=== PATIENT | female | born 1990 | race African-American/Black ===

== ENCOUNTER 2020-06-20 12:28 | Emergency (ER) | payer SELFPAY ==
[2020-06-20] MEDS ORDERED: KETOROLAC 30 MG/ML INJ ONE (13:59)
[2020-06-20 14:12] LABS: Urine Bacteria 20-50 /HPF (<20); Urine Culture Reflex Order NOT NEEDED; Urine Mucus LIGHT /HPF (NONE SEEN); Urine RBC <5 /HPF (NONE SEEN)
[2020-06-20 14:21] LABS: Urine Blood NEGATIVE (NEG); Urine Glucose NEGATIVE (NEG); Urine Protein 1+ (NEG); Urine Specific Gravity 1.025 (1.005-1.030)
--- NOTE | 2020-06-20 14:32 | EDPHYS ---
Physician Documentation [facility] Name: Minerva Fry Age: 29 yrs Sex: Female : 1990 Arrival Date: 06/20/2020 Time: 12:29 Bed 20 Private MD: ED Physician Marbella Green HPI: 06/20 14:13 This 29 yrs old Black Female presents to ER via Ambulatory with complaints of Abdominal snw Pain. 14:13 The patient presents with abdominal pain right lower quadrant. Onset: The snw symptoms/episode began/occurred suddenly, 2 day(s) ago, and became persistent. The symptoms do not radiate. Associated signs and symptoms: none. The symptoms are described as constant, waxing/waning. Modifying factors: The symptoms are alleviated by nothing, the symptoms are aggravated by movement, pressure, walking. Severity of pain: At its worst the pain was moderate 7/10 all the time, worse at times. 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 - Social history:: Smoking status: Patient denies any tobacco usage or history of. ROS: 13:58 Constitutional: Negative for fever, chills, and weight loss, Eyes: Negative for injury, snw pain, redness, and discharge, ENT: Negative for injury, pain, and discharge, Neck: Negative for injury, pain, and swelling, Cardiovascular: Negative for chest pain, palpitations, and edema, Respiratory: Negative for shortness of breath, cough, wheezing, and pleuritic chest pain, Abdomen/GI: Positive for abdominal pain, no nausea, vomiting, diarrhea, or constipation, Back: Negative for injury and pain, : Negative for injury, bleeding, discharge, and swelling, Skin: Negative for injury, rash, and discoloration, Neuro: Negative for headache, weakness, numbness, tingling, and seizure. Exam: 13:57 Constitutional: This is a well developed, well nourished patient who is awake, alert, snw and in no acute distress. Head/Face: Normocephalic, atraumatic. Eyes: Pupils equal round and reactive to light, extra-ocular motions intact. Lids and lashes normal. Conjunctiva and sclera are non-icteric and not injected. Cornea within normal limits. Periorbital areas with no swelling, redness, or edema. ENT: Nares patent. No nasal discharge, no septal abnormalities noted. Tympanic membranes are normal and external auditory canals are clear. Oropharynx with no redness, swelling, or masses, exudates, or evidence of obstruction, uvula midline. Mucous membranes moist. Neck: Trachea midline, no thyromegaly or masses palpated, and no cervical lymphadenopathy. Supple, full range of motion without nuchal rigidity, or vertebral point tenderness. No Meningismus. Chest/axilla: Normal chest wall appearance and motion. Nontender with no deformity. No lesions are appreciated. Cardiovascular: Regular rate and rhythm with a normal S1 and S2. No gallops, murmurs, or rubs. Normal PMI, no JVD. No pulse deficits. Respiratory: Lungs have equal breath sounds bilaterally, clear to auscultation and percussion. No rales, rhonchi or wheezes noted. No increased work of breathing, no retractions or nasal flaring. Back: No spinal tenderness. No costovertebral tenderness. Full range of motion. Skin: Warm, dry with normal turgor. Normal color with no rashes, no lesions, and no evidence of cellulitis. MS/ Extremity: Pulses equal, no cyanosis. Neurovascular intact. Full, normal range of motion. Neuro: Awake and alert, GCS 15, oriented to person, place, time, and situation. Cranial nerves II-XII grossly intact. Motor strength 5/5 in all extremities. Sensory grossly intact. Cerebellar exam normal. Normal gait. Psych: Awake, alert, with orientation to person, place and time. Behavior, mood, and affect are within normal limits. 13:57 Abdomen/GI: Inspection: abdomen appears normal, Bowel sounds: diminished, in all quadrants, Palpation: mild abdominal tenderness, in the left lower quadrant, moderate abdominal tenderness, in all quadrants, in the right lower quadrant. Vital Signs: 12:55 BP 120 / 71; Pulse 66; Resp 16 S; Temp 98.0(O); Pulse Ox 100% on R/A; Weight 62.6 kg aa5 (R); Height 5 ft. 6 in. (167.64 cm) (R); Pain 7/10; 13:45 BP 108 / 76; Pulse 67; Resp 16; Pulse Ox 100% ; rb1 14:30 BP 113 / 79; Pulse 67; Resp 17; Pulse Ox 100% ; rb1 12:55 Body Mass Index 22.27 (62.60 kg, 167.64 cm) aa5 MDM: 13:09 Patient medically screened. snw 14:33 Data reviewed: vital signs, nurses notes. Data interpreted: Pulse oximetry: on room air snw is 100 %. Interpretation: normal. Counseling: I had a detailed discussion with the patient and/or guardian regarding: the historical points, exam findings, and any diagnostic results supporting the discharge/admit diagnosis, lab results, radiology results, the need for outpatient follow up, to return to the emergency department if symptoms worsen or persist or if there are any questions or concerns that arise at home. Special discussion: Based on the patient's Hx, exam, and Dx evaluation, there is no indication for emergent surgery or inpatient Tx. It is understood by the patient/guardian that if the Sx's persist or worsen they need to return immediately for re-evaluation. Based on the history and exam findings, there is no indication for further emergent testing or inpatient evaluation. I discussed with the patient/guardian the need to see the OB Gyne specialist for further evaluation of the symptoms. I discussed with the patient/guardian the need to see the primary care provider for further evaluation of the symptoms. 06/20 13:06 Order name: Urine Microscopic Only; Complete Time: 14:18 snw 06/20 13:54 Order name: Urine Dipstick--Ancillary (enter results); Complete Time: 14:25 eb 06/20 13:40 Order name: US Transvaginal Study (Probe); Complete Time: 14:58 snw 06/20 13:54 Order name: Urine --Ancillary (enter results); Complete Time: 14:25 eb 06/20 13:06 Order name: Urine Test (obtain specimen); Complete Time: 13:52 snw 06/20 13:06 Order name: Urine Dipstick-Ancillary (obtain specimen); Complete Time: 13:52 snw Administered Medications: 13:53 Drug: TORadol 60 mg {Note: UPT negative. .} Route: IM; Site: right gluteus; aa5 14:09 Follow up: Response: No adverse reaction rb1 14:35 Drug: Stewart 5 mg-325 mg 1 tabs Route: PO; rb1 15:00 Follow up: Response: No adverse reaction rb1 Disposition: 16:23 Co-signature as Attending Physician, Marbella Green MD. ma2 Disposition: 06/20/20 14:31 Discharged to Home. Impression: Other ovarian cysts. - Condition is Stable. - Discharge Instructions: Abdominal Pain, Adult, Ovarian Cyst. - Prescriptions for Diclofenac Sodium 75 mg Oral Tablet Sustained Release - take 1 tablet by ORAL route 2 times per day; 30 tablet. promethazine 25 mg Oral Tablet - take 1 tablet by ORAL route every 6 hours As needed; 20 tablet. - Medication Reconciliation Form, Thank You Letter, Antibiotic Education, Prescription Opioid Use form. - Follow up: Emergency Department; When: As needed; Reason: Worsening of condition. Follow up: Private Physician; When: 1 week; Reason: Recheck today's complaints, Continuance of care, Re-evaluation by your physician. Signatures: Dispatcher [employer] EDMS Jossy Berman, SHELLY-C KNIFER UP-Csnw Terri Guerrero RN RN aa5 Karla Medina RN RN rb1 Marbella Green MD MD ma2 Corrections: (The following items were deleted from the chart) 14:13 13:58 Constitutional: Negative for fever, chills, and weight loss, Eyes: Negative for snw injury, pain, redness, and discharge, ENT: Negative for injury, pain, and discharge, Neck: Negative for injury, pain, and swelling, Cardiovascular: Negative for chest pain, palpitations, and edema, Respiratory: Negative for shortness of breath, cough, wheezing, and pleuritic chest pain, Abdomen/GI: Negative for abdominal pain, nausea, vomiting, diarrhea, and constipation, Back: Negative for injury and pain, : Negative for injury, bleeding, discharge, and swelling, Skin: Negative for injury, rash, and discoloration, Neuro: Negative for headache, weakness, numbness, tingling, and seizure, snw 15:17 14:31 06/20/2020 14:31 Discharged to Home. Impression: Other ovarian cysts. Condition rb1 is Stable. Forms are Medication Reconciliation Form, Thank You Letter, Antibiotic Education, Prescription Opioid Use. Follow up: Emergency Department; When: As needed; Reason: Worsening of condition. Follow up: Private Physician; When: 1 week; Reason: Recheck today's complaints, Continuance of care, Re-evaluation by your physician. snw
--- NOTE | 2020-06-20 14:32 | ER ---
Nurse's Notes [facility] Name: Minerva Fry Age: 29 yrs Sex: Female : 1990 Arrival Date: 06/20/2020 Time: 12:29 Bed 20 Private MD: Diagnosis: Other ovarian cysts Presentation: 06/20 12:52 Chief complaint: Patient states: RLQ pain that began 4 days ago and is worse with aa5 movement. Pt denies nausea/vomiting/diarrhea. Pt denies urinary symptoms. 12:52 Coronavirus screen: Client denies travel out of the [place] in the last 14 days. At this aa5 time, the client does not indicate any symptoms associated with coronavirus-19. Ebola Screen: Patient negative for fever greater than or equal to 101.5 degrees Fahrenheit, and additional compatible Ebola Virus Disease symptoms. Initial Sepsis Screen: Does the patient meet any 2 criteria? No. Patient's initial sepsis screen is negative. Does the patient have a suspected source of infection? No. Patient's initial sepsis screen is negative. Risk Assessment: Do you want to hurt yourself or someone else? Patient reports no desire to harm self or others. Onset of symptoms was 2019. 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 - Social history:: Smoking status: Patient denies any tobacco usage or history of. Screenin:57 Abuse screen: Denies threats or abuse. Nutritional screening: No deficits noted. rb1 Tuberculosis screening: No symptoms or risk factors identified. Fall Risk None identified. Assessment: 12:57 General: Appears in no apparent distress. Behavior is calm, cooperative. Pain: rb1 Complains of pain in right lower quadrant Pain began x 4 days. Neuro: Level of Consciousness is awake, alert, obeys commands, Oriented to person, place, time, situation. Cardiovascular: Capillary refill < 3 seconds. Respiratory: Airway is patent Respiratory effort is even, unlabored, Respiratory pattern is regular, symmetrical. GI: Patient currently denies diarrhea, nausea, vomiting. : No signs and/or symptoms were reported regarding the genitourinary system. Derm: Skin is dry, Skin is normal, Skin temperature is warm. 13:54 Reassessment: Awaiting US. Neuro: Level of Consciousness is awake, alert, obeys aa5 commands, Oriented to person, place, time, situation. Respiratory: Airway is patent Respiratory effort is even, unlabored, Respiratory pattern is regular, symmetrical. Derm: Skin is dry, Skin is normal, Skin temperature is warm. 14:35 Reassessment: Patient appears in no apparent distress at this time. Patient and/or rb1 family updated on plan of care and expected duration. Pain level reassessed. Patient is alert, oriented x 3, equal unlabored respirations, skin warm/dry/pink. pain 10/10. 15:15 Reassessment: Patient appears in no apparent distress at this time. No changes from rb1 previously documented assessment. Vital Signs: 12:55 BP 120 / 71; Pulse 66; Resp 16 S; Temp 98.0(O); Pulse Ox 100% on R/A; Weight 62.6 kg aa5 (R); Height 5 ft. 6 in. (167.64 cm) (R); Pain 7/10; 13:45 BP 108 / 76; Pulse 67; Resp 16; Pulse Ox 100% ; rb1 14:30 BP 113 / 79; Pulse 67; Resp 17; Pulse Ox 100% ; rb1 12:55 Body Mass Index 22.27 (62.60 kg, 167.64 cm) aa5 ED Course: 12:29 Patient arrived in ED. ag5 12:52 Arm band placed on. aa5 12:57 Patient has correct armband on for positive identification. Bed in low position. Call rb1 light in reach. Side rails up X 1. Pulse ox on. NIBP on. Warm blanket given. 13:04 Triage completed. aa5 13:05 Jossy Berman FNP-C is PHCP. snw 13:05 Marbella Green MD is Attending Physician. snw 13:06 Karla Medina, ORIANA is Primary Nurse. rb1 14:23 Ultrasound completed. Patient tolerated well. Notified CATTLE STICKER/PA jossy. sg3 14:28 US Transvaginal Study (Probe) In Process Unspecified. EDMS 15:16 No provider procedures requiring assistance completed. Patient did not have IV access rb1 during this emergency room visit. Administered Medications: 13:53 Drug: TORadol 60 mg {Note: UPT negative. .} Route: IM; Site: right gluteus; aa5 14:09 Follow up: Response: No adverse reaction rb1 14:35 Drug: Onsted 5 mg-325 mg 1 tabs Route: PO; rb1 15:00 Follow up: Response: No adverse reaction rb1 Outcome: 14:31 Discharge ordered by snjai 15:10 Discharged to home ambulatory. rb1 15:10 Condition: stable 15:10 Discharge instructions given to patient, Instructed on discharge instructions, follow rb1 up and referral plans. medication usage, Demonstrated understanding of instructions, follow-up care, medications, Prescriptions given X 2. 15:10 Patient left the ED. rb1 Signatures: Dispatcher [employer] EDMS Jossy Berman, SHELLY-C PRODUCTION ILLUSTRATOR-Terri Westfall RN RN aa5 Karla Medina RN RN rb1 Melissa Bustamante sg3 Juan Alberto Maravilla ag5 Corrections: (The following items were deleted from the chart) 13:10 12:52 Chief complaint: Patient states: RLQ pain that began 4 days ago and is worse with aa5 movement. Pt denies nausea/vomiting/diarrhea. aa5 13:52 13:53 TORadol 60 mg IM in right gluteus aa5 aa5 15:17 15:10 Discharge instructions given to patient, Instructed on discharge instructions, rb1 follow up and referral plans. medication usage, Demonstrated understanding of instructions, follow-up care, medications, Prescriptions given X 1, rb1 15:18 15:17 Patient left the ED. rb1 rb1
[2020-06-20] MEDS ORDERED: HYDROCODONE/APAP 5/325 MG TAB ONE (14:45)
--- NOTE | 2020-06-20 14:50 | RAD REPORT ---
EXAM DESCRIPTION: US - Transvaginal Study Probe - 06/20/2020 2:27 pm CLINICAL HISTORY: Pelvic pain COMPARISON: none FINDINGS: The uterus is retroverted measuring 8 x 5 x 5 millimeters. An IUD is present within the en dometrium. It lies within the uterine body and fundus. 4.4 centimeter complex cystic mass right ovary. Blood flow to the right ovary is present. Left ovary is normal size and echotexture. The right and left adnexum unremarkable. Small amount of free fluid IMPRESSION: An IUD is present within the endometrium. 4.4 centimeter complex cystic mass right ovary likely benign. Follow up ultrasound in a couple months is recommended for re-evaluation.
[2020-06-21 12:31] VITALS: TEMP 98; O2SAT 100
[2020-06-21 12:33] VITALS: BP 113/79
== END 2020-06-20 15:17 | disposition home or self-care (01) ==
LOC: ER 12:28
DX: N83.299 Other ovarian cyst, unspecified side (principal)
CPT/HCPCS: 76830; 81003; 81015; 81025; 96372; 99284

== ENCOUNTER 2021-04-27 07:37 | Emergency (ER) | payer SELFPAY ==
--- OUTSIDE RECORDS SUMMARY | 2021-04-27 07:40 | XMS REPORT | Continuity of Care Document ---
:1990 Author Organization [facility] t Address [address] [place] [address] Care Team Providers Name Role Phone Faustina Carlin Attending Clinician Problems This patient has no known problems. Allergies, Adverse Reactions, Alerts This patient has no known allergies or adverse reactions. Medications This patient has no known medications. Procedures This patient has no known procedures. Encounters Start End Encounter Admission Attending Care Care Encounter Source Date/Time Date/Time Type Type Clinicians Facility Department ID 2020-11-11 2020-11-11 Office BLAKE Pineda [id number] 13:07:06 13:58:50 Visit Darwin Weems CHILD LIFE SPECIALIST [id number] [facility] [id number] MATERNAL [id number] & CHILD [address] [place] [address] Results This patient has no known results.
[2021-04-27 08:52] LABS: Urine Blood Negative (Negative); Urine Glucose Negative (Negative); Urine Protein Negative (Negative); Urine Specific Gravity 1.025 (1.005-1.030)
[2021-04-27 08:57] LABS: Absolute Lymphocytes (CBC) 0.7 K/uL (0.7-4.9); Basophils % 0.5 % (0-1.3); Hematocrit 37.7 % (36.0-45.0); Lymphocytes % 19.4 % (15.3-44.8); MPV 9.7 fL (7.6-11.3); RBC Red Blood Cell Count 4.74 M/uL (3.86-4.86)
[2021-04-27 08:59] LABS: Urine Specific Gravity/Preg 1.025 (1.005-1.030)
[2021-04-27] MEDS ORDERED: MORPHINE 4 MG/ML SYR ONE (09:12)
[2021-04-27] MEDS ORDERED: NA CHLORIDE 0.9% 500 ML ONE (09:12)
[2021-04-27] MEDS ORDERED: ONDANSETRON 4 MG/2 ML VIAL ONE (09:12)
[2021-04-27 09:18] LABS: ALT/SGPT 24 U/L (12-78); AST/SGOT 12 U/L (15-37); Albumin 3.8 g/dL (3.4-5.0); Alkaline Phosphatase 51 U/L (45-117); BUN Blood Urea Nitrogen 12 mg/dL (7-18); Bicarbonate 27 mmol/L (21-32); Bilirubin Direct 0.1 mg/dL (0-0.2); Bilirubin Total 0.3 mg/dL (0.2-1.0); Glucose Level 91 mg/dL (74-106); Lipase 37 U/L (73-393); Potassium 4.1 mmol/L (3.5-5.1); Protein, Total 7.2 g/dL (6.4-8.2); Sodium Level 140 mmol/L (136-145)
--- NOTE | 2021-04-27 10:44 | RAD REPORT ---
EXAM DESCRIPTION: CT - Abdomen Pelvis W Contrast - 04/27/2021 9:35 am CLINICAL HISTORY: ABD PAIN COMPARISON: Head C Spine Cap Wo Con dated 04/26/2021No comparisons TECHNIQUE: Biphasic, helical CT imaging of the abdomen and pelvis was performed following 100 ml non -ionic IV contrast. No oral contrast administered. All CT scans are performed using dose optimization technique as appropriate and may include automated exposure control or mA/KV adjustment according to patient size. FINDINGS: No suspicious findings in the lung bases. The liver, spleen, and pancreas show no suspicious findings. Gallbladder and biliary tree are also wi thout suspicious finding. Symmetric renal function is seen with no hydronephrosis or suspicious renal mass. No pyelonephritis o r acute parenchymal process. No bladder abnormalities. No adrenal abnormalities. No stomach or small bowel abnormality seen. There is no appendicitis finding. Circumferential wall th ickening involves the colon from cecum through splenic flexure. Descending colon is spared any signif icant wall thickening or edema. There is less prominent wall thickening and edema of the sigmoid and rectum portions of the colon. A discrete mass is not identified. No free air or pneumatosis. Small amount of free fluid is present in the cul de sac. IUD is in place within the uterus which is tilted posteriorly to the left. Ovaries appear to be normal size for age are somewhat isodense to the adjacent structures. Small cysts or follicles are present. A primary ova shakira process is not suspected. No fallopian tube dilatation. No hernia, mass or bulky lymphadenopathy. No suspicious bony findings. IMPRESSION: Pancolitis pattern is present sparing the descending portion of the colon. No mass lesio n identified. No abscess, free air or surgically emergent finding. Free fluid in the cul de sac may be reactive from the colitis, for physiologic or a combination. No acute or WALLET ASSEMBLER process suspected.
--- NOTE | 2021-04-27 11:01 | ER ---
Nurse's Notes [facility] Name: Minerva Fry Age: 30 yrs Sex: Female : 1990 Arrival Date: 04/27/2021 Time: 07:57 Bed 18 Private MD: Diagnosis: Abdominal pain, Generalized;Noninfective gastroenteritis and colitis, unspecified Presentation: 04/27 08:04 Chief complaint: Patient states: having bad stomach pains, intermittent X 3 days, pain iw is in lower abd radiating to back, +nausea, no vomiting or diarrhea. Coronavirus screen: At this time, the client does not indicate any symptoms associated with coronavirus-19. Ebola Screen: Patient negative for fever greater than or equal to 101.5 degrees Fahrenheit, and additional compatible Ebola Virus Disease symptoms Patient denies exposure to infectious person. Patient denies travel to an Ebola-affected area in the 21 days before illness onset. No symptoms or risks identified at this time. Initial Sepsis Screen: Does the patient meet any 2 criteria? No. Patient's initial sepsis screen is negative. Does the patient have a suspected source of infection? No. Patient's initial sepsis screen is negative. Risk Assessment: Do you want to hurt yourself or someone else? Patient reports no desire to harm self or others. Onset of symptoms was April 24, 2021. 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 - Social history:: Smoking status: Patient denies any tobacco usage or history of. Screenin:05 Abuse screen: Denies threats or abuse. Denies injuries from another. Nutritional kg screening: No deficits noted. Tuberculosis screening: No symptoms or risk factors identified. Fall Risk None identified. No fall in past 12 months (0 pts). No secondary diagnosis (0 pts). IV access (20 points). Ambulatory Aid- None/Bed Rest/Nurse Assist (0 pts). Gait- Normal/Bed Rest/Wheelchair (0 pts) Mental Status- Oriented to own ability (0 pts). Total Perdomo Fall Scale indicates No Risk (0-24 pts). Assessment: 09:03 General: Appears in no apparent distress. Behavior is calm, cooperative, appropriate kg for age, quiet. Pain: Complains of pain in right upper quadrant and right lower quadrant Pain currently is 0 out of 10 on a pain scale. at worst was 9 out of 10 on a pain scale. level that patient reports is acceptable is 3 out of 10 on a pain scale. Quality of pain is described as aching, crampy, Is intermittent. Neuro: No deficits noted. Cardiovascular: No deficits noted. Respiratory: No deficits noted. GI: Abdomen is flat, Bowel sounds present X 4 quads. Abd is soft X 4 quads Abdomen is tender to palpation in right upper quadrant and right lower quadrant. GI: Reports nausea. : No deficits noted. Urine is cloudy. EENT: No deficits noted. Derm: No deficits noted. Musculoskeletal: No deficits noted. 09:38 Reassessment: Pt left for CT. kg 09:38 Reassessment: Pt back from CT. kg Vital Signs: 08:04 BP 123 / 90; Pulse 65; Resp 16; Temp 98.1; Pulse Ox 99% on R/A; Weight 72.57 kg; Height iw 5 ft. 6 in. (167.64 cm); Pain 10/10; 11:19 BP 111 / 66; Pulse 65; Resp 16; Pulse Ox 98% on R/A; kg 08:04 Body Mass Index 25.82 (72.57 kg, 167.64 cm) iw ED Course: 07:57 Patient arrived in ED. as 08:06 Triage completed. iw 08:06 Eleazar Sheridan MD is Attending Physician. kdr 08:06 Arm band placed on. iw 08:40 Nori Pineda, ORIANA is Primary Nurse. kg 08:45 Inserted saline lock: 20 gauge in right antecubital area, using aseptic technique. kg 09:02 Basic Metabolic Panel Sent. kg 09:06 Patient has correct armband on for positive identification. Bed in low position. Call kg light in reach. Side rails up X 1. 09:35 CT Abd/Pelvis - IV Contrast Only In Process Unspecified. EDMS 11:19 No provider procedures requiring assistance completed. IV discontinued, intact, kg bleeding controlled, No redness/swelling at site. Pressure dressing applied. Administered Medications: 08:55 Drug: NS 0.9% 500 ml Route: IV; Rate: bolus; Site: right antecubital; kg 09:45 Follow up: Response: No adverse reaction; Marked relief of symptoms; IV Status: kg Completed infusion; IV Intake: 1000ml 08:55 Drug: morphine 4 mg Route: IVP; Site: right antecubital; kg 09:45 Follow up: Response: No adverse reaction; Marked relief of symptoms; Pain is decreased kg 08:55 Drug: Zofran (Ondansetron) 4 mg Route: IVP; Site: right antecubital; kg 09:45 Follow up: Response: No adverse reaction; Marked relief of symptoms; Nausea is decreasedkg 11:05 Drug: Cipro (ciprofloxacin) 500 mg Route: PO; kg 11:19 Follow up: Response: No adverse reaction kg 11:05 Drug: Flagyl (metroNIDAZOLE) 500 mg Route: PO; kg 11:19 Follow up: Response: No adverse reaction kg Intake: 09:45 IV: 1000ml; Total: 1000ml. kg Outcome: 11:00 Discharge ordered by . kdr 11:20 Discharged to home ambulatory, with friend. kg 11:20 Condition: improved 11:20 Discharge instructions given to patient, Instructed on discharge instructions, follow up and referral plans. Demonstrated understanding of instructions, follow-up care, medications, Prescriptions given X 4. 11:20 Patient left the ED. kg Signatures: Dispatcher [employer] EDEleazar Ag MD MD kdr Martinez, Amelia as Williams, Irene, RN RN iw Graham, Kristen, RN RN kg
--- NOTE | 2021-04-27 11:01 | EDPHYS ---
Physician Documentation [facility] Name: Minerva Fry Age: 30 yrs Sex: Female : 1990 Arrival Date: 04/27/2021 Time: 07:57 Bed 18 Private MD: ED Physician Eleazar Sheridan HPI: 04/27 08:50 This 30 yrs old Black Female presents to ER via Ambulatory with complaints of Abdominal kdr Pain. 08:51 The patient presents with abdominal pain in the lower abdomen. Onset: The kdr symptoms/episode began/occurred gradually, 3 day(s) ago. The symptoms radiate to back. Associated signs and symptoms: Pertinent positives: nausea. The symptoms are described as achy, intermittent, vague, waxing/waning. Modifying factors: The symptoms are alleviated by nothing, the symptoms are aggravated by nothing. Severity of pain: At its worst the pain was moderate severe just prior to arrival, in the emergency department the pain has improved. The patient has not experienced similar symptoms in the past. The patient has not recently seen a physician. 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 - Social history:: Smoking status: Patient denies any tobacco usage or history of. ROS: 08:51 Constitutional: Negative for fever, chills, and weight loss, Eyes: Negative for injury, kdr pain, redness, and discharge, Neck: Negative for injury, pain, and swelling, Cardiovascular: Negative for chest pain, palpitations, and edema, Respiratory: Negative for shortness of breath, cough, wheezing, and pleuritic chest pain, Back: Negative for injury and pain, : Negative for injury, bleeding, discharge, and swelling, MS/Extremity: Negative for injury and deformity, Skin: Negative for injury, rash, and discoloration, Neuro: Negative for headache, weakness, numbness, tingling, and seizure activity. Psych: Negative for depression, anxiety, suicide ideation, homicidal ideation, and hallucinations, Allergy/Immunology: Negative for hives, rash, and allergies, Endocrine: Negative for neck swelling, polydipsia, polyuria, polyphagia, and marked weight changes, Hematologic/Lymphatic: Negative for swollen nodes, abnormal bleeding, and unusual bruising. 08:51 Abdomen/GI: Positive for abdominal pain, nausea, of the suprapubic area, right lower quadrant and left lower quadrant, Negative for black/tarry stool, rectal pain, rectal bleeding. Exam: 08:51 Constitutional: This is a well developed, well nourished patient who is awake, alert, kdr and in no acute distress. Head/Face: Normocephalic, atraumatic. Eyes: Pupils equal round and reactive to light, extra-ocular motions intact. Lids and lashes normal. Conjunctiva and sclera are non-icteric and not injected. Cornea within normal limits. Periorbital areas with no swelling, redness, or edema. Neck: Trachea midline, no thyromegaly or masses palpated, and no cervical lymphadenopathy. Supple, full range of motion without nuchal rigidity, or vertebral point tenderness. No Meningismus. Chest/axilla: Normal chest wall appearance and motion. Nontender with no deformity. No lesions are appreciated. Cardiovascular: Regular rate and rhythm with a normal S1 and S2. No gallops, murmurs, or rubs. Normal PMI, no JVD. No pulse deficits. Respiratory: Lungs have equal breath sounds bilaterally, clear to auscultation and percussion. No rales, rhonchi or wheezes noted. No increased work of breathing, no retractions or nasal flaring. Back: No spinal tenderness. No costovertebral tenderness. Full range of motion. Skin: Warm, dry with normal turgor. Normal color with no rashes, no lesions, and no evidence of cellulitis. MS/ Extremity: Pulses equal, no cyanosis. Neurovascular intact. Full, normal range of motion. Neuro: Awake and alert, GCS 15, oriented to person, place, time, and situation. Cranial nerves II-XII grossly intact. Motor strength 5/5 in all extremities. Sensory grossly intact. Cerebellar exam normal. Normal gait. Psych: Awake, alert, with orientation to person, place and time. Behavior, mood, and affect are within normal limits. 08:51 Abdomen/GI: Inspection: abdomen appears normal, Bowel sounds: diminished, in all quadrants, Palpation: soft, mild abdominal tenderness, mass, is not appreciated, rebound tenderness, is not appreciated. Vital Signs: 08:04 BP 123 / 90; Pulse 65; Resp 16; Temp 98.1; Pulse Ox 99% on R/A; Weight 72.57 kg; Height iw 5 ft. 6 in. (167.64 cm); Pain 10/10; 11:19 BP 111 / 66; Pulse 65; Resp 16; Pulse Ox 98% on R/A; kg 08:04 Body Mass Index 25.82 (72.57 kg, 167.64 cm) iw MDM: 08:51 Data reviewed: vital signs, nurses notes, lab test result(s), radiologic studies. kdr Counseling: I had a detailed discussion with the patient and/or guardian regarding: the historical points, exam findings, and any diagnostic results supporting the discharge/admit diagnosis, lab results, radiology results. 11:00 Patient medically screened. kdr 04/27 08:34 Order name: Basic Metabolic Panel; Complete Time: 09:52 kdr 04/27 08:34 Order name: CBC with Diff; Complete Time: 09:52 kdr 04/27 08:34 Order name: Hepatic Function; Complete Time: 09:52 kdr 04/27 08:34 Order name: Lipase; Complete Time: 09:52 kdr 04/27 08:52 Order name: Urine Dipstick-Ancillary EDPR 04/27 08:53 Order name: Urine --Ancillary (enter results); Complete Time: 09:52 mt 04/27 08:34 Order name: IV Saline Lock; Complete Time: 09:02 kdr 04/27 08:34 Order name: Labs collected and sent; Complete Time: 09:02 kdr 04/27 08:34 Order name: CT Abd/Pelvis - IV Contrast Only; Complete Time: 10:47 kdr 04/27 08:34 Order name: Urine Dipstick-Ancillary (obtain specimen); Complete Time: 09:02 kdr 04/27 08:34 Order name: Urine Test (obtain specimen); Complete Time: 09:02 kdr Administered Medications: 08:55 Drug: NS 0.9% 500 ml Route: IV; Rate: bolus; Site: right antecubital; kg 09:45 Follow up: Response: No adverse reaction; Marked relief of symptoms; IV Status: kg Completed infusion; IV Intake: 1000ml 08:55 Drug: morphine 4 mg Route: IVP; Site: right antecubital; kg 09:45 Follow up: Response: No adverse reaction; Marked relief of symptoms; Pain is decreased kg 08:55 Drug: Zofran (Ondansetron) 4 mg Route: IVP; Site: right antecubital; kg 09:45 Follow up: Response: No adverse reaction; Marked relief of symptoms; Nausea is decreasedkg 11:05 Drug: Cipro (ciprofloxacin) 500 mg Route: PO; kg 11:19 Follow up: Response: No adverse reaction kg 11:05 Drug: Flagyl (metroNIDAZOLE) 500 mg Route: PO; kg 11:19 Follow up: Response: No adverse reaction kg Disposition Summary: 04/27/21 11:00 Discharge Ordered Location: Home kdr Problem: new kdr Symptoms: have improved kdr Condition: Stable kdr Diagnosis - Abdominal pain, Generalized kdr - Noninfective gastroenteritis and colitis, unspecified kdr Followup: kdr - With: Private Physician - When: 2 - 3 days - Reason: If symptoms return, Further diagnostic work-up, Recheck today's complaints, Continuance of care, Re-evaluation by your physician Discharge Instructions: - Discharge Summary Sheet kdr - Diarrhea, Adult kdr - Abdominal Pain, Adult, [id number] kdr - Colitis kdr Forms: - Medication Reconciliation Form kdr - Thank You Letter kdr - Antibiotic Education kdr - Prescription Opioid Use kdr Prescriptions: - Cipro 500 mg Oral Tablet - take 1 tablet by ORAL route every 12 hours for 10 days; 20 tablet; Refills: 0, kdr Product Selection Permitted - Flagyl 500 mg Oral Tablet - take 1 tablet by ORAL route every 6 hours for 10 days; 40 tablet; Refills: 0, kdr Product Selection Permitted - Zofran 4 mg Oral Tablet - take 1 tablet by ORAL route every 4-6 hours As needed; 12 tablet; Refills: 0, kdr Product Selection Permitted - Tramadol 50 mg Oral Tablet - take 1 tablet by ORAL route every 8 hours as needed; 12 tablet; Refills: 0, kdr Product Selection Permitted Signatures: 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
[2021-04-27] MEDS ORDERED: CIPROFLOXACIN HCL 500 MG TAB ONE (11:27)
[2021-04-27 11:28] VITALS: TEMP 98.1
[2021-04-27] MEDS ORDERED: metroNIDAZOLE 500 MG TABLET ONE (11:28)
[2021-04-27 11:29] VITALS: BP 111/66; O2SAT 98
== END 2021-04-27 11:20 | disposition home or self-care (01) ==
LOC: ER 07:37
DX: K52.9 Noninfective gastroenteritis and colitis, unspecified (principal)
CPT/HCPCS: 36415; 74177; 80048; 80076; 81003; 81025; 83690; 85025; 96361; 96374; 96375; 99284; J2405; J7040; Q9967

== ENCOUNTER 2021-05-16 16:10 | Emergency (ER) | payer SELFPAY ==
--- OUTSIDE RECORDS SUMMARY | 2021-05-16 16:13 | XMS REPORT | Continuity of Care Document ---
:1990 Author Organization [facility] t Address [address] [place] [address] Care Team Providers Name Role Phone Faustina [...] ID 2020-11-11 2020-11-11 Office BLAKE Pineda [id number] 13:07:06 13:58:50 Visit Darwin Weems [employer] [id number] [facility] [id number] MATERNAL [phone] & CHILD [address] [place] [id number] Results This patient has no known results.
--- NOTE | 2021-05-16 18:18 | ER ---
Nurse's Notes [facility] Name: Minerva Fry Age: 30 yrs Sex: Female : 1990 Arrival Date: 05/16/2021 Time: 16:16 Bed Waiting Private MD: Diagnosis: ED Course: 05/16 16:16 Patient arrived in ED. am2 Administered Medications: No medications were administered Outcome: 18:17 Patient left the ED. iw Signatures: Melodie Chambers RN RN Teresa Banegas am2
== END 2021-05-16 18:17 | disposition left against medical advice (07) ==
LOC: ER 16:10
DX: Z02.9 Encounter for administrative examinations, unspecified (principal)

== ENCOUNTER 2021-10-04 15:03 | Emergency (ER) | payer SELFPAY ==
--- OUTSIDE RECORDS SUMMARY | 2021-10-04 15:07 | XMS REPORT | Continuity of Care Document ---
:1990 Author Organization [facility] t Address [address] [place] [address] Care Team Providers Name Role Phone Faustina Carlin Attending Clinician Faustina PINEDA Attending Clinician Unavailable Payers Payer Name Policy Type Policy Number Effective Date Expiration Date Chandler vanegas [facility] [id number] 2019 00:00:00 Problems Condition Condition Condition Status Onset Resolution Last Treating Co mments Source Name Details Category Date Date Treatment Clinician Date Encounter Encounter Disease Active Uni vers for for - ity of surveillan surve[place] ce of ce of 00 Medical other other Branch contracept contracept richar richar IUD IUD Disease Active Univers (intrauter (intrauter 11-10 it y of ine ine 00:00: [place] device) in device) in [address] Branch Depo-Prove Depo-Prove Disease Active U nivers ra ra 1-19 [place] of contracept [place] richar status richar status 00 Me dical Branch Anemia of Anemia of Disease Active 2014-10 Uni vers mother in mother in 1-17 [place]y of , , 00:[place] antepartum antepartum 00 Me dical , third , third Branch trimester trimester Multiparit Multiparit Disease Active U nivers y y 9-12 ity of 00:00: [place] 00 Medical Branch Sickle Sickle Disease Active Univers cell trait cell trait 9-12 it y of 00:00: [address] Screening Screening Disease Active Overview: [facility] examinatio examinatio 5-17 hgb it y of n for STD n for STD 00:00: [place] (sexually (sexually 00 oresis in M edical transmitte transmitte process B ranch d disease) d disease) Allergies, Adverse Reactions, Alerts Allergy Allergy Status Severity Reaction(s) Onset Inactive Treating Comm ents Source Name Type Date Date Clinician NO KNOWN Drug Active [facility] ALLERGIE Class ity of S [facility] Social History Social Habit Start Date Stop Date Quantity Comments Source Sex Assigned At [facility] y of [facility] Exposure to Not sure [facility] SARS-CoV-2 [facility] (event) [employer] Tobacco use and 2020-11-11 2020-11-11 Never used [facility] y of exposure 00:00:00 00:00:00 [facility] Alcohol intake 2020-11-11 2020-11-11 Current [facility] 00:00:00 00:00:00 non-drinker of [facility] alcohol [employer] (finding) Smoking Status Start Date Stop Date Source Never smoker [facility] Medications Ordered Filled Start Stop Current Ordering Indication Dosage Frequency Signature Comments Components Source Medication Medication Date Date Medication? Clinician (SIG) Name Name [facility] 2014-10- No 1{tbl} Take 1 Tab U nivers ENHANCE 28 12-07- by mouth ity of mg iron- 1 00:00: 00:00 every [place] mg-400 mg 00 :00 morning. Medica l Cap Branch [facility] 2014-10- No 1{tbl} Take 1 Tab U nivers ENHANCE 28 12-07-21 by mouth ity of mg iron- 1 00:00: 00:00 every [place] mg-400 mg 00 :00 morning. Medica l Cap Branch [facility] 2014-10- No 1{tbl} Take 1 Tab U nivers ENHANCE 28 12-07-21 by mouth ity of mg iron- 1 00:00: 00:00 every [place] mg-400 mg 00 :00 morning. Medica l Cap Branch docusate 2014-10- No 240mg Take 1 Cap U nivers calcium 12-04- by mouth ity of (SURFAK) 00:00: 00:00 [place] daily [place] 240 mg 00 :00 as needed Medical capsule for Branch Constipati on. ibuprofen 2014-10- No 600mg Take 1 Tab Univers (MOTRIN) 12-04 by mouth ity of 600 mg 00:00: 00:00 every 6 [place] tablet 00 :00 (six) Medical hours as Branch needed for Pain (scale 1-3) or Pain (scale 4-6). Take with food or milk. traMADOL 2014-10- No 50mg Take 1 Tab Un agustin (ULTRAM) 50 12-04 by mouth ity of mg tablet 00:00: 00:00 [place] 6 [place] 00 :[place] (six) Medical hours as Branch needed for Pain (scale 4-6) or Pain (scale 7-10). docusate 2014-10- No 240mg Take 1 Cap U nivers calcium 12-04 by mouth ity of (SURFAK) 00:00: 00:00 once daily [place] 240 mg 00 :00 as needed Medical capsule for Branch Constipati on. ibuprofen 2014-10 No 600mg Take 1 Tab Univers (MOTRIN) 12-04 by mouth ity of 600 mg 00:00: 00:00 every 6 [place] tablet 00 :00 (six) Medical hours as Branch needed for Pain (scale 1-3) or Pain (scale 4-6). Take with food or milk. traMADOL 2014-10- No 50mg Take 1 Tab Un [place] (ULTRAM) 50 12-04 by mouth ity of mg tablet 00:00: 00:00 every 6 [place] 00 :00 (six) Medical hours as Branch needed for Pain (scale 4-6) or Pain (scale 7-10). docusate 2014-10- No 240mg Take 1 Cap U nivers calcium 12-04 by mouth ity of (SURFAK) 00:00: 00:00 once daily [place] 240 mg 00 :00 as needed Medical capsule for Branch Constipati on. ibuprofen 2014-10- No 600mg Take 1 Tab Univers (MOTRIN) 12-04 by mouth ity of 600 mg 00:00: 00:00 every 6 [place] tablet 00 :00 (six) Medical hours as Branch needed for Pain (scale 1-3) or Pain (scale 4-6). Take with food or milk. traMADOL 2014-10- No 50mg Take 1 Tab Un [place] (ULTRAM) 50 12-04 by mouth ity of mg tablet 00:00: 00:00 every 6 [place] 00 :[place] (six) Medical hours as Branch needed for Pain (scale 4-6) or Pain (scale 7-10). acetaminoph 2014-10- No [id number] 1{capsu Take 1 Cap Univers en-caff-but 11-15 le} by mouth ity of albital 00:00: 00:00 every 4 [place] (ESGIC) per 00 :00 (four) Medica l capsule hours as Branch needed for Headache. acetaminoph 2014-10- No [id number] 1{capsu Take 1 Cap Univers en-caff-but 11-15 le} by mouth ity of albital 00:00: 00:00 every 4 [place] (ESGIC) per 00 :00 (four) Medica l capsule hours as Branch needed for Headache. acetaminoph 2014-10- No [id number] 1{capsu Take 1 Cap Univers en-caff-but 11-15 le} by mouth ity of albital 00:00: 00:00 every 4 [place] (ESGIC) per 00 :00 (four) Medica l capsule hours as Branch needed for Headache. Iron, Cbn & 2014-10- No [id number] 1{tbl} Take 1 Tab Univers Gluc-FA-B12 10-31 by mouth ity of -C-DSS 00:00: 00:00 daily. [place] (FERRALET 00 :00 Medical Branch DUAL-IRON DELIVERY) 90-1-12-50 mg-mg-mcg-m g per tablet Iron, Cbn & 2014-10- No [id number] 1{tbl} Take 1 Tab Univers Gluc-FA-B12 10-31 by mouth ity of -C-DSS 00:00: 00:00 daily. [place] (FERRALET 00 :00 Medical 90 Branch DUAL-IRON DELIVERY) 90-1-12-50 mg-mg-mcg-m g per tablet Iron, Cbn & 2014-10- No [id number] 1{tbl} Take 1 Tab Univers Gluc-FA-B12 -17 11-04 by mouth ity of -C-DSS 00:00: 00:00 daily. [place] (FERRALET 00 :[address] DUAL-IRON DELIVERY) 90-1-12-50 mg-mg-mcg-m g per tablet No known No Univers medications ity [facility] [place] [facility] No known No [facility] Immun[facility] Ordered Filled Immunization Date Status Comments Sourc e Immunization Name Name TDAP 2015-07-20 Completed University of 00:00:00 [facility] Influenza Virus 2015-07-20 Completed Universit y of Vaccine Quad IM 3+ 00:00:00 [facility] TDAP 2015-07-20 Completed University of 00:00:00 [facility] Influenza Virus 2015-07-20 Completed Universit y of Vaccine Quad IM 3+ 00:00:00 [facility] TDAP 2015-07-20 Completed University of 00:00:00 [facility] Influenza Virus 2015-07-20 Completed Universit y of Vaccine Quad IM 3+ 00:00:00 [facility] TDAP 2015-07-20 Completed University of 00:00:00 [facility] Influenza Virus 2015-07-20 Completed Universit y of Vaccine Quad IM 3+ 00:00:00 [facility] TDAP 2015-07-20 Completed University of 00:00:00 [facility] Influenza Virus 2015-07-20 Completed Universit y of Vaccine Quad IM 3+ 00:00:00 [facility] TDAP 2011-04-19 Completed University of 00:00:00 [facility] 2011-04-19 Completed University of 00:00:00 [facility] TDAP 2011-04-19 Completed University of 00:00:00 [facility] TDAP 2011-04-19 Completed University of 00:00:00 [facility] TDAP 2011-04-19 Completed University of 00:00:00 [facility] Vital Signs Vital Name Observation Time Observation Value Comments Source Systolic blood 2020-11-11 19:16:00 121 mm[Hg] Univer sity of pressure [facility] Diastolic blood 2020-11-11 19:16:00 73 mm[Hg] Unive rsity of pressure [facility] Heart rate 2020-11-11 19:16:00 73 /min [facility] [place] [facility] Body temperature 2020-11-11 19:16:00 36.56 Felecia Univ [facility] [place] [facility] Respiratory rate 2020-11-11 19:16:00 16 /min [facility] [place] [facility] Body height 2020-11-11 19:16:00 167.6 cm [facility] [place] [facility] Body weight 2020-11-11 19:16:00 65.772 kg [facility] [place] [facility] BMI 2020-11-11 19:16:00 23.40 kg/m2 [facility] [place] [facility] Systolic blood 2020-11-11 19:16:00 121 mm[Hg] Univer sity of pressure [place] [facility] Diastolic blood 2020-11-11 19:16:00 73 mm[Hg] Unive rsity of pressure [place] [facility] Heart rate 2020-11-11 19:16:00 73 /min [facility] [place] [facility] Body temperature 2020-11-11 19:16:00 36.56 Felecia [facility] [place] [facility] Respiratory rate 2020-11-11 19:16:00 16 /min [facility] [place] [facility] Body height 2020-11-11 19:16:00 167.6 cm [facility] [place] [facility] Body weight 2020-11-11 19:16:00 65.772 kg [facility] [place] [facility] BMI 2020-11-11 19:16:00 23.40 kg/m2 [facility] [place] [facility] Systolic blood 2020-11-04 15:19:00 117 mm[Hg] Univer sity of pressure [place] [facility] Diastolic blood 2020-11-04 15:19:00 73 mm[Hg] Unive rsity of pressure [place] [facility] Heart rate 2020-11-04 15:19:00 98 /min [facility] [place] [facility] Body temperature 2020-11-04 15:19:00 36.22 Felecia [facility] [place] [facility] Respiratory rate 2020-11-04 15:19:00 16 /min [facility] [place] [facility] Body height 2020-11-04 15:19:00 167.6 cm [facility] [place] [facility] Body weight 2020-11-04 15:19:00 66.934 kg [facility] [place] [facility] BMI 2020-11-04 15:19:00 23.82 kg/m2 Universi [facility] Procedures This patient has no known procedures. Encounters Start End Encounter Admission Attending Care Care Encounter Source Date/Time Date/Time Type Type Clinicians Facility Department ID 2020-12-22 2020-12-22 Outpatient R [facility] [id number] Univers 14:45:00 14:45:00 [id number] [facility] 2020-12-22 2020-12-22 Outpatient R [facility] [id number] Univers 14:45:00 14:45:00 [facility] 2020-12-10 2020-12-10 Outpatient R [facility] [id number] Univers 13:00:00 13:00:00 [id number] [facility] 2020-12-02 2020-12-02 Outpatient R [facility] [id number] Univers 09:00:00 09:00:00 [id number] [facility] 2020-11-11 2020-11-11 [facility] [id number] 13:07:06 13:58:50 Visit Darwin Weems [employer] [id number] [facility] [id number] MATERNAL [id number] & CHILD [address] [place] [address] 2020-11-11 2020-11-11 Office Edwin [facility] [id number] Univers 13:07:06 13:58:50 Visit Darwin Weems [employer] [id number] [facility] [id number] Danny as MATERNAL [id number] Med ical & CHILD [address] [place] [address] 2020-11-11 2020-11-11 Outpatient R EDWIN [facility] [id number] Univers 13:00:00 13:00:00 DARWIN [id number] ity o [facility] 2020-11-11 2020-11-11 Outpatient R EDWIN [facility] [id number] Univers 13:00:00 13:00:00 DARWIN ity o [facility] 2020-11-04 2020-11-04 Office BLAKE Pineda [id number] [facility] 09:13:45 09:57:42 Visit Darwin Weems [employer] [id number] luzma [facility] [id number] Danny as MATERNAL [id number] Med ical & CHILD [address] [place] [address] 2020-11-04 2020-11-04 Outpatient R EDWIN [facility] [id number] [facility] 09:30:00 09:30:00 DARWIN vincent [facility] Results This patient has no known results.
[2021-10-04] MEDS ORDERED: ACETAMINOPHEN 325 MG TABLET ONE (16:16)
[2021-10-04 17:23] LABS: SARS-COV-2 RT PCR NEGATIVE (NEGATIVE)
[2021-10-04] MEDS ORDERED: LIDOCAINE VISCOUS 2% SOLN 15 ML UDC ONE (17:33)
--- NOTE | 2021-10-04 17:34 | ER ---
Nurse's Notes [facility] Name: Minerva Fry Age: 30 yrs Sex: Female : 1990 Arrival Date: 10/04/2021 Time: 15:09 Bed 9 Private MD: Christofer Rodrigues Diagnosis: Streptococcal pharyngitis Presentation: 10/04 15:15 Chief complaint: Patient states: she had a sore throat last week, and now has a sore ap3 and stiff neck. Coronavirus screen: sore throat, Client presents with at least one sign or symptom that may indicate coronavirus-19. Standard/surgical mask placed on the client. Provider contacted for isolation considerations. Ebola Screen: No symptoms or risks identified at this time. Initial Sepsis Screen: Does the patient meet any 2 criteria? No. Patient's initial sepsis screen is negative. Does the patient have a suspected source of infection? No. Patient's initial sepsis screen is negative. Risk Assessment: Do you want to hurt yourself or someone else? Patient reports no desire to harm self or others. Onset of symptoms was September 27, 2021. 15:15 Method Of Arrival: Ambulatory ap3 15:15 Acuity: BRANDON 4 ap3 Triage Assessment: 15:16 General: Appears in no apparent distress. Behavior is calm, cooperative, appropriate ap3 for age. Pain: Complains of pain in neck. EENT: Throat is pink. Neuro: Level of Consciousness is awake, alert, obeys commands, Oriented to person, place, time, situation, Appropriate for age. Respiratory: Airway is patent Respiratory effort is even, unlabored, Respiratory pattern is regular, symmetrical. 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 - Social history:: Smoking status: Patient denies any tobacco usage or history of. Patient uses alcohol, occasionally. Screenin:17 Abuse screen: Denies threats or abuse. Nutritional screening: No deficits noted. ap3 Tuberculosis screening: No symptoms or risk factors identified. Fall Risk None identified. Assessment: 16:21 General: Appears in no apparent distress. comfortable, well developed, Behavior is ww calm, cooperative, appropriate for age. Pain: Complains of pain in uvula, left aspect of posterior pharynx and right aspect of posterior pharynx. Neuro: Level of Consciousness is awake, alert, obeys commands, Oriented to person, place, time, situation, Appropriate for age Speech is normal. Cardiovascular: Denies chest pain, Capillary refill < 3 seconds Patient's skin is warm and dry. Respiratory: Reports cough that is Airway is patent Respiratory effort is even, unlabored, Respiratory pattern is regular, symmetrical, Breath sounds are clear. GI: No deficits noted. : No deficits noted. No signs and/or symptoms were reported regarding the genitourinary system. EENT: Reports nasal congestion pain when swallowing. Derm: No deficits noted. No signs and/or symptoms reported regarding the dermatologic system. Skin is intact, Skin is pink, warm \\T\\ dry. Musculoskeletal: No deficits noted. No signs and/or symptoms reported regarding the musculoskeletal system. 17:42 Reassessment: Patient appears in no apparent distress at this time. No changes from ww previously documented assessment. Patient is alert, oriented x 3, equal unlabored respirations, skin warm/dry/pink. Vital Signs: 15:15 BP 112 / 68; Pulse 68; Resp 18; Temp 97.4; Pulse Ox 100% ; Weight 66.22 kg; Height 5 ap3 ft. 6 in. (167.64 cm); 17:41 BP 104 / 65; Pulse 80; Resp 18; Temp 97.5; Pulse Ox 100% on R/A; ww 15:15 Body Mass Index 23.56 (66.22 kg, 167.64 cm) ap3 ED Course: 15:09 Patient arrived in ED. mr 15:09 Christofer Rodrigues MD is Private Physician. mr 15:16 Triage completed. ap3 15:17 Arm band placed on left wrist. ap3 15:18 Kole Georges PA is PHCP. cp 15:18 Kole Encinas MD is Attending Physician. cp 15:56 Bernice Castillo, ORIANA is Primary Nurse. ww 16:09 COVID-19/FLU A+B (Document "Date of Onset" if Symptomatic) Sent. kj1 16:09 Strep Sent. kj1 16:21 Patient has correct armband on for positive identification. Bed in low position. Call ww light in reach. 17:42 No provider procedures requiring assistance completed. Patient did not have IV access ww during this emergency room visit. Administered Medications: 16:18 Drug: Tylenol 650 mg Route: PO; ww 17:40 Drug: Viscous Lidocaine Liquid (4 %) 5 ml Route: Mucous Membrane; ww Outcome: 17:33 Discharge ordered by . enriqueta 17:42 Discharged to home ambulatory. ww 17:42 Condition: stable 17:42 Discharge instructions given to patient, Instructed on discharge instructions, follow up and referral plans. medication usage, safety practices, Demonstrated understanding of instructions, follow-up care, medications, Prescriptions given X 2. 17:51 Patient left the ED. ww Signatures: Yoana Donahue Corey, PA PA cp Prokisch, Amanda, RN RN kenn3 Nayeli Dumont kj1 Bernice Castillo RN RN karen
--- NOTE | 2021-10-04 17:34 | EDPHYS ---
Physician Documentation [facility] Name: Minerva Fry Age: 30 yrs Sex: Female : 1990 Arrival Date: 10/04/2021 Time: 15:09 Bed 9 Private MD: Christofer Rodrigues ED Physician Kole Encinas HPI: 10/04 16:00 This 30 yrs old Black Female presents to ER via Ambulatory with complaints of Sore cp Throat. 16:00 The patient presents with sore throat. cp 16:00 Onset: The symptoms/episode began/occurred last week. Associated signs and symptoms: cp Pertinent positives: cough, neck pain and neck stiffness, Pertinent negatives diarrhea, dysphagia, earache, fever, vomiting. 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 - Social history:: Smoking status: Patient denies any tobacco usage or history of. Patient uses alcohol, occasionally. ROS: 16:05 Constitutional: Negative for body aches, chills, fever, poor PO intake. cp 16:05 Eyes: Negative for injury, pain, redness, and discharge. cp 16:05 ENT: Positive for sore throat, Negative for drainage from ear(s), ear pain, difficulty swallowing, difficulty handling secretions. 16:05 Neck: Positive for pain at rest, stiffness, tenderness. 16:05 Cardiovascular: Negative for chest pain. 16:05 Respiratory: Positive for cough, Negative for shortness of breath, wheezing. 16:05 Abdomen/GI: Negative for abdominal pain, nausea, vomiting, and diarrhea. 16:05 Neuro: Negative for headache. 16:05 All other systems are negative. Exam: 16:20 Head/Face: Normocephalic, atraumatic. cp 16:20 Constitutional: The patient appears in no acute distress, alert, awake, non-toxic, well developed, well nourished. 16:20 Eyes: Periorbital structures: appear normal, Conjunctiva: normal, no exudate, no injection, Lids and lashes: appear normal, bilaterally. 16:20 ENT: External ear(s): are unremarkable, Ear canal(s): are normal, clear, TM's: dullness, bilaterally, Nose: is normal, Mouth: Lips: moist, Oral mucosa: moist, Posterior pharynx: Airway: no evidence of obstruction, patent, Tonsils: bilaterally enlarged, with erythema, Uvula: midline, swelling, is not appreciated, erythema, that is moderate, exudate, is not appreciated, Voice: is normal. 16:20 Neck: Lymph nodes: lymphadenopathy is appreciated, anterior cervical nodes. 16:20 Chest/axilla: Inspection: normal. 16:20 Cardiovascular: Rate: normal. 16:20 Respiratory: the patient does not display signs of respiratory distress, Respirations: normal, no use of accessory muscles, no retractions, labored breathing, is not present, Breath sounds: are clear throughout, no decreased breath sounds. 16:20 Abdomen/GI: Exam negative for discomfort, distension, guarding, Inspection: abdomen cp appears normal. Vital Signs: 15:15 BP 112 / 68; Pulse 68; Resp 18; Temp 97.4; Pulse Ox 100% ; Weight 66.22 kg; Height 5 ap3 ft. 6 in. (167.64 cm); 17:41 BP 104 / 65; Pulse 80; Resp 18; Temp 97.5; Pulse Ox 100% on R/A; ww 15:15 Body Mass Index 23.56 (66.22 kg, 167.64 cm) ap3 MDM: 15:21 Patient medically screened. cp 16:30 Differential diagnosis: group A strep tonsillitis, influenza, mononucleosis, cp peritonsillar abscess pharyngitis, retropharyngeal abcess. 17:32 Data reviewed: vital signs, nurses notes, lab test result(s). cp 17:32 Counseling: I had a detailed discussion with the patient and/or guardian regarding: the cp historical points, exam findings, and any diagnostic results supporting the discharge/admit diagnosis, lab results, to return to the emergency department if symptoms worsen or persist or if there are any questions or concerns that arise at home. 10/04 15:51 Order name: Strep 10/04 17:16 Interpretation: Reviewed. 10/04 16:06 Order name: COVID-19/FLU A+B (Document "Date of Onset" if Symptomatic); Complete Time: bd 17:26 10/04 17:26 Interpretation: Reviewed. cp Administered Medications: 16:18 Drug: Tylenol 650 mg Route: PO; ww 17:40 Drug: Viscous Lidocaine Liquid (4 %) 5 ml Route: Mucous Membrane; ww Disposition Summary: 10/04/21 17:33 Discharge Ordered Location: Home cp Problem: new cp Symptoms: have improved cp Condition: Stable cp Diagnosis - Streptococcal pharyngitis cp Followup: cp - With: Private Physician - When: 2 - 3 days - Reason: Worsening of condition Discharge Instructions: - Discharge Summary Sheet cp - Strep Throat, Adult cp Forms: - Medication Reconciliation Form cp - Work release form bd - Thank You Letter cp - Antibiotic Education cp - Prescription Opioid Use cp Prescriptions: - Lidocaine Viscous - take 5 milliliter by ORAL route every 4-6 hours As needed; 1 bottle; Refills: cp 0, Product Selection Permitted - Amoxicillin 875 mg Oral Tablet - take 1 tablet by ORAL route every 12 hours for 10 days; 20 tablet; Refills: 0, cp Product Selection Permitted Signatures: Dispatcher [employer] EDMS Kole Georges PA PA cp Teresa Olivia RN RN ap3 Bernice Castillo RN RN ww Corrections: (The following items were deleted from the chart) :10/03 16:10 Constitutional: The patient appears in no acute distress, alert, awake, cp non-toxic, well developed, well nourished, cp 10/04 23:28 10/03 16:10 Head/Face: Normocephalic, atraumatic. cp cp 10/04 23:10/03 16:10 Eyes: Periorbital structures: appear normal, Conjunctiva: normal, no cp exudate, no injection, Lids and lashes: appear normal, bilaterally, cp 10/04 23:28 12 16:10 ENT: External ear(s): are unremarkable, Ear canal(s): are normal, clear, cp TM's: dullness, bilaterally, Nose: is normal, Mouth: Lips: moist, Oral mucosa: moist, Posterior pharynx: Airway: no evidence of obstruction, patent, Tonsils: bilaterally enlarged, with erythema, Uvula: midline, swelling, is not appreciated, erythema, that is moderate, exudate, is not appreciated, Voice: is normal, cp 10/04 23:28 10/03 16:10 Neck: Lymph nodes: lymphadenopathy is appreciated, anterior cervical nodes, cp cp 10/04 23:28 10/03 16:10 Chest/axilla: Inspection: normal, cp cp 10/04 23:10/03 16:10 Cardiovascular: Rate: normal, cp cp 10/04 23:10/03 16:10 Respiratory: the patient does not display signs of respiratory distress, cp Respirations: normal, no use of accessory muscles, no retractions, labored breathing, is not present, Breath sounds: are clear throughout, no decreased breath sounds, cp
[2021-10-04 18:16] VITALS: O2SAT 100
[2021-10-04 18:17] VITALS: BP 104/65; TEMP 97.5
== END 2021-10-04 17:51 | disposition home or self-care (01) ==
LOC: ER 15:03
DX: J02.0 Streptococcal pharyngitis (principal); Z20.822 Contact with and (suspected) exposure to COVID-19
CPT/HCPCS: 0240U; 87081; 99283

== ENCOUNTER 2022-04-27 12:26 | Emergency (ER) | payer SELFPAY ==
[2022-04-27] MEDS ORDERED: METOCLOPRAMIDE 10 MG/2mL INJ ONE (14:13)
[2022-04-27] MEDS ORDERED: DIPHENHYDRAMINE 50 MG/ML VIAL ONE (14:13)
[2022-04-27] MEDS ORDERED: KETOROLAC 30 MG/ML INJ ONE (14:13)
[2022-04-27] MEDS ORDERED: NA CHLORIDE 0.9% 1,000 ML ONE (14:14)
--- NOTE | 2022-04-27 15:14 | RAD REPORT ---
EXAM DESCRIPTION: CT - Head Brain Wo Cont - 04/27/2022 3:06 pm CLINICAL HISTORY: Headache Headache, drowsiness COMPARISON: HEAD BRAIN W O CONTRAST dated 09/03/2011 TECHNIQUE: All CT scans are performed using dose optimization technique as appropriate and may inclu de automated exposure control or mA/KV adjustment according to patient size. FINDINGS: No intracranial hemorrhage, hydrocephalus or extra-axial fluid collection.No areas of brai n edema or evidence of midline shift. The paranasal sinuses and mastoids are clear. The calvarium is intact. IMPRESSION: No acute intracranial abnormality.
--- NOTE | 2022-04-27 15:19 | EDPHYS ---
Physician Documentation [facility] Name: Minerva Fry Age: 31 yrs Sex: Female : 1990 Arrival Date: 04/27/2022 Time: 12:51 Bed 12 Private MD: ED Physician Shahzad Esposito HPI: 04/27 13:22 This 31 yrs old Black Female presents to ER via Ambulatory with complaints of Headache. pm1 13:22 The patient complains of pain to the forehead. The patient describes the headache as pm1 aching, constant. 13:22 Onset: The symptoms/episode began/occurred 2 day(s) ago. Associated signs and symptoms: pm1 Pertinent positives: Photophobia Fatigue, Pertinent negatives: dizziness, fever, nausea, neck stiffness, vomiting. Severity of symptoms: in the emergency department the pain is actually worse. Headache History: Denies prior headaches. The symptoms are alleviated by Darkened room, the symptoms are aggravated by lights, noise. The patient has not experienced similar symptoms in the past. The patient has not recently seen a physician. 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 - Social history:: Smoking status: Patient denies any tobacco usage or history of. ROS: 13:22 Constitutional: Negative for fever, chills, and weight loss, Neck: Negative for injury, pm1 pain, and swelling, Cardiovascular: Negative for chest pain, palpitations, and edema, Respiratory: Negative for shortness of breath, cough, wheezing, and pleuritic chest pain, Abdomen/GI: Negative for abdominal pain, nausea, vomiting, diarrhea, and constipation, MS/Extremity: Negative for injury and deformity, Skin: Negative for injury, rash, and discoloration. 13:22 Neuro: Positive for headache, Negative for dizziness, numbness, tingling, weakness. 13:22 All other systems are negative. Exam: 13:22 Constitutional: This is a well developed, well nourished patient who is awake, alert, pm1 and in no acute distress. Head/Face: Normocephalic, atraumatic. 13:22 Neck: Trachea midline, no thyromegaly or masses palpated, and no cervical lymphadenopathy. Supple, full range of motion without nuchal rigidity, or vertebral point tenderness. No Meningismus. 13:22 Back: No spinal tenderness. No costovertebral tenderness. Full range of motion. Skin: Warm, dry with normal turgor. Normal color with no rashes, no lesions, and no evidence of cellulitis. MS/ Extremity: Pulses equal, no cyanosis. Neurovascular intact. Full, normal range of motion. 13:22 Eyes: Exam is negative for acute changes, Periorbital structures: appear normal, Pupils: no acute changes, Conjunctiva: no acute changes, no injection. 13:22 Cardiovascular: Exam negative for acute changes, Rate: normal, Rhythm: regular, Pulses: no pulse deficits are appreciated. 13:22 Respiratory: Exam negative for acute changes, respiratory distress, shortness of breath. 13:22 Neuro: Exam negative for acute changes, Orientation: is normal, Mentation: is normal, Cranial nerves: CN II- XII are normal as tested, Motor: is normal, moves all fours, strength is normal, strength is 5/5 in all extremities. Vital Signs: 12:58 BP 93 / 69; Pulse 66; Resp 16; Temp 97.9; Pulse Ox 100% on R/A; Weight 65.77 kg; Height iw 5 ft. 6 in. (167.64 cm); 16:03 BP 109 / 67; Pulse 71; Resp 18; Pulse Ox 100% on R/A; ld1 12:58 Body Mass Index 23.40 (65.77 kg, 167.64 cm) iw MDM: 13:22 Data reviewed: vital signs. Data interpreted: Pulse oximetry: on room air is 100 %. pm1 Interpretation: normal. 13:23 Patient medically screened. pm1 14:50 ED course: Headache resolved completely, negative for swabs of COVID and flu. Will get pm1 CT brain to rule out abnormalities. 14:50 Counseling: I had a detailed discussion with the patient and/or guardian regarding: lab pm1 results, Inform patient lab results and patient is agreeable with CT head. 04/27 13:00 Order name: SARS-COV-2 RT PCR (Document "Date of Onset" if Symptomatic); Complete Time: iw 14:32 04/27 13:04 Order name: Flu; Complete Time: 14:32 ld1 04/27 14:48 Order name: CT Head Brain wo Cont; Complete Time: 15:18 pm1 04/27 13:50 Order name: IV Saline Lock; Complete Time: 14:16 pm1 Administered Medications: 14:15 Drug: Benadryl (diphenhydrAMINE) 25 mg Route: IVP; Site: right antecubital; ld1 14:15 Drug: Reglan (metoCLOPramide) 10 mg Route: IVP; Site: right antecubital; ld1 14:16 Drug: NS 0.9% 1000 ml Route: IV; Rate: 1000 ml; Site: right antecubital; ld1 14:16 Drug: Ketorolac 30 mg Route: IVP; Site: right antecubital; ld1 Disposition: 16:49 Attestation: The patient's history, exam findings, diagnostics, and a summary of any rust interventions or procedures was reviewed in detail with Calvin Kumari NP. Disposition Summary: 04/27/22 15:19 Discharge Ordered Location: Home pm1 Problem: new pm1 Symptoms: have improved pm1 Condition: Stable pm1 Diagnosis - Headache pm1 Followup: pm1 - With: Emergency Department - When: As needed - Reason: Worsening of condition Followup: pm1 - With: Private Physician - When: 2 - 3 days - Reason: Recheck today's complaints, Continuance of care, Re-evaluation by your physician Discharge Instructions: - Discharge Summary Sheet pm1 - General Headache Without Cause pm1 Forms: - Medication Reconciliation Form pm1 - Thank You Letter pm1 - Antibiotic Education pm1 - Prescription Opioid Use pm1 Prescriptions: - Butalbital/aspirin/caffeine 50 mg/325 mg / 40 mg - take 1 tablet by ORAL route every 4 hours As needed; 20 tablet; Refills: 0, pm1 Product Selection Permitted Signatures: Dispatcher [employer] Melodie Ghotra RN RN iw Marinas, Patrick, NP WORKERS COMPENSATION COORDINATOR pm1 Jannette Parker RN RN ld1 Shahzad Esposito MD MD [id number]
--- NOTE | 2022-04-27 15:19 | ER ---
Nurse's Notes [facility] Name: Minerva Fry Age: 31 yrs Sex: Female : 1990 Arrival Date: 04/27/2022 Time: 12:51 Bed 12 Private MD: Diagnosis: Headache Presentation: 04/27 12:58 Chief complaint: Patient states: headache X 2 days, body aches, fatigue, at home COVID iw teste was negative. Coronavirus screen: Client presents with at least one sign or symptom that may indicate coronavirus-19. Ebola Screen: Patient negative for fever greater than or equal to 101.5 degrees Fahrenheit, and additional compatible Ebola Virus Disease symptoms Patient denies exposure to infectious person. Patient denies travel to an Ebola-affected area in the 21 days before illness onset. No symptoms or risks identified at this time. Initial Sepsis Screen: Does the patient meet any 2 criteria? No. Patient's initial sepsis screen is negative. Does the patient have a suspected source of infection? No. Patient's initial sepsis screen is negative. Risk Assessment: Do you want to hurt yourself or someone else? Patient reports no desire to harm self or others. Onset of symptoms was April 25, 2022. 12:58 Method Of Arrival: Ambulatory iw 12:58 Acuity: BRANDON 4 iw 13:57 Acuity: BRANDON 3 iw Triage Assessment: 14:30 Pain: Pain currently is 6 out of 10 on a pain scale. Pain began 3 hours ago. Also ld1 complains of no other associated symptoms. 14:30 Headache History: Denies prior headaches. General: Appears in no apparent distress. ld1 comfortable, Behavior is calm, cooperative, appropriate for age. 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 - Social history:: Smoking status: Patient denies any tobacco usage or history of. Screenin:16 Abuse screen: Denies threats or abuse. Denies injuries from another. Nutritional iw screening: No deficits noted. Tuberculosis screening: No symptoms or risk factors identified. Fall Risk None identified. Assessment: 13:16 General: Appears in no apparent distress. Behavior is calm, cooperative. General: iw Reports feeling ill for fatigue for. Pain: Complains of pain in body aches. Neuro: Level of Consciousness is awake, alert, obeys commands, Oriented to person, place, time, situation, Reports headache. Respiratory: Respiratory effort is even, unlabored, Respiratory pattern is regular, symmetrical. Derm: Skin is intact, is healthy with good turgor. Vital Signs: 12:58 BP 93 / 69; Pulse 66; Resp 16; Temp 97.9; Pulse Ox 100% on R/A; Weight 65.77 kg; Height iw 5 ft. 6 in. (167.64 cm); 16:03 BP 109 / 67; Pulse 71; Resp 18; Pulse Ox 100% on R/A; ld1 12:58 Body Mass Index 23.40 (65.77 kg, 167.64 cm) iw ED Course: 12:51 Patient arrived in ED. mr 12:59 Triage completed. iw 13:00 Arm band placed on. iw 13:09 Calvin Kumari, CIARA is PHCP. pm1 13:09 Shahzad Esposito MD is Attending Physician. pm1 13:14 Jannette Parker, ORIANA is Primary Nurse. ld1 13:59 Patient has correct armband on for positive identification. iw 13:59 No provider procedures requiring assistance completed. iw 14:16 Inserted saline lock: 20 gauge in right antecubital area, using aseptic technique. ld1 15:08 CT Head Brain wo Cont In Process Unspecified. EDMS 16:03 IV discontinued, intact, bleeding controlled, No redness/swelling at site. ld1 Administered Medications: 14:15 Drug: Benadryl (diphenhydrAMINE) 25 mg Route: IVP; Site: right antecubital; ld1 14:15 Drug: Reglan (metoCLOPramide) 10 mg Route: IVP; Site: right antecubital; ld1 14:16 Drug: NS 0.9% 1000 ml Route: IV; Rate: 1000 ml; Site: right antecubital; ld1 14:16 Drug: Ketorolac 30 mg Route: IVP; Site: right antecubital; ld1 Medication: 13:59 VIS not applicable for this client. iw Outcome: 15:19 Discharge ordered by . pm1 16:03 Discharged to home ambulatory. ld1 16:03 Condition: stable 16:03 Discharge instructions given to patient, Instructed on discharge instructions, follow up and referral plans. medication usage, Demonstrated understanding of instructions, follow-up care, medications, Prescriptions given X 1. 16:03 Patient left the ED. ld1 Signatures: Dispatcher [employer] EDME Godfrey Yoana mr Melodie Chambers RN RN Calvin Kumari, CIARA [employer] pm1 Jannette Parker RN RN ld1 Corrections: (The following items were deleted from the chart) 14:17 13:16 No provider procedures requiring assistance completed. ld1 14:17 13:16 Patient did not have IV access during this emergency room visit. ld1
[2022-04-27 16:37] VITALS: TEMP 97.9; O2SAT 100
[2022-04-27 16:39] VITALS: BP 109/67
== END 2022-04-27 16:03 | disposition home or self-care (01) ==
LOC: ER 12:26
DX: R51.9 Headache, unspecified (principal); Z20.822 Contact with and (suspected) exposure to COVID-19
CPT/HCPCS: 70450; 87804; 96374; 96375; 99284; J1200; J2765; J7030; U0003

== ENCOUNTER 2022-12-28 09:14 | Emergency (ER) | payer SELFPAY ==
--- OUTSIDE RECORDS SUMMARY | 2022-12-28 09:17 | XMS REPORT | Continuity of Care Document ---
:1990 Author Organization [facility] t Address [address] [facility] [address] [place] [address] Care Team Providers Name Role Phone Darwin Carlin Primary Care Physician [phone] Sherlyn Cohen MD Attending Clinician Stacey Benoit Attending Clinician DARWIN LOFTON Attending Clinician Unavailable DAVID HALL Attending Clinician Unavailable Doctor Unassigned, [place] Attending Clinician Unavailable Pgy1 Attending Clinician Unavailable Edmond Barragan MD Attending Clinician EDMOND BARRAGAN Attending Clinician Unavailable Jovana Nunez Attending Clinician [phone] JOVANA JEAN-BAPTISTE Attending Clinician Unavailable ANIBAL CR Attending Clinician Unavailable ANIBAL CR Attending Clinician Unavailable Darwin Carlin Attending Clinician Payers Payer Name Policy Type Policy Number Effective Date Expiration Date S ource Problems Condition Condition Condition Status Onset Resolution Last Treating Co mments Source Name Details Category Date Date Treatment Clinician Date Well woman Well woman Disease Active U nivers exam exam 5-24 ity of 00:00: [address] Branch IUD IUD Disease Active Univers (intrauter (intrauter 1- it y of ine ine 00:00: [place] device) in device) in [address] Branch Anemia of Anemia of Disease Active 2014-10 Uni vers mother in mother in 17 [place] , [place] ante[place] antepartum 00 Me dical , third , third Branch trimester trimester Sickle Sickle Disease Active Univers cell trait cell trait 9-12 it y of 00:00: [place] 00 Medical Branch Screening Screening Disease Active Overview: [facility] examinatio examinatio -17 Formattin ity of n for STD n for STD 00:00: [place] (sexually (sexually 00 note Medi aliyah transmitte transmitte might be Branch d disease) d disease) different from the original. hgb electroph oresis in process Allergies, Adverse Reactions, Alerts This patient has no known allergies or adverse reactions. Social History Social Habit Start Date Stop Date Quantity Comments Source Exposure to 2022-04-17 2022-04-27 Not sure [facility] SARS-CoV-2 (event) 00:00:00 07:48:00 Medica l Branch Alcohol intake 2022-03-22 2022-03-22 0 /d [facility] 00:00:00 00:00:00 [facility] Sex Ass[birth year] At [birth year] [facility] 00:00:00 00:00:00 [facility] Smoking Status Start Date Stop Date Source Never smoked tobacco [facility] [place] [facility] Medications Ordered Filled Start Stop Current Ordering Indication Dosage Frequency Signature Comments Components Source Medication Medication Date Date Medication? Clinician (SIG) Name Name miSOPROStoL 2021- No [id number] 200ug Take 1 Univers 200 mcg 05-15 tablet by ity of tablet 00:00: 04:59 mouth [place] 00 :00 every 12 Medical (twelve) Branch hours for 2 doses. Take one tablet night before procedure, take one tablet morning of procedure diazePAM 10 2021- No [id number] 10mg Take 1 Univers mg tablet 05-15 tablet by ity of 00:00: 04:59 mouth once [place] 00 :00 now for 1 Medical dose. Branch Bring to clinic to take before procedure (await instructio ns before taking) No known No No known Unive rs medications 6-08 medication it y of 15:03: s [place] 52 Medical Branch Immunizations Ordered Filled Immunization Date Status Comments [facility] Immunization Name Name HPV9 2022-03-07 Completed University of 00:00:00 [facility] HPV9 2022-03-07 Completed University of 00:00:00 [facility] Influenza Virus 2015-07-20 Completed Universit y of Vaccine Quad IM 3+ 00:00:00 [facility] TDAP 2015-07-20 Completed University of 00:00:00 [facility] Influenza Virus 2015-07-20 Completed Universit y of Vaccine Quad IM 3+ 00:00:00 [facility] Branch TDAP 2015-07-20 Completed University of 00:00:00 [facility] TDAP 2011-04-19 Com[facility] 00:[facility]:00 [facility] Procedures This patient has no known procedures. Encounters Start End Encounter Admission Attending Care Care Encounter Source Date/Time Date/Time Type Type Clinicians Facility Department ID 2022-05-26 2022-05-26 Case Noel [facility] [id number] Univers 00:00:00 00:00:00 Management [facility] [id number] ity [id number] [id number] [address] 2022-05-09 2022-05-09 Telephone [place] [facility] [id number] Univers 00:00:00 00:00:00 [facility] [id number] i [id number] [id number] [address] 2022-05-08 2022-05-08 Outpatient R [facility] [id number] Univers 09:00:00 09:00:00 ity of [facility] 2022-05-08 2022-05-08 Outpatient R ROLLY [facility] [id number] Univers 09:00:00 09:00:00 DARWIN segal o f [facility] 2022-04-27 2022-04-27 Outpatient R ISABEL [facility] [id number] Univers 12:00:00 12:00:00 DAVID ity of [facility] 2022-03-23 2022-03-23 Orders Doctor MARCO [id number] Univers 00:00:00 00:00:00 Only Unassigned, KRISTY [id number] ity of [place] [facility] [id number] Danny as [phone] [facility] [address] 2022-03-22 2022-03-22 Office Pgy1 [facility]ERSIT [id number] Univers 13:30:00 14:44:28 Visit Edmond Barragan [facility] [id number] ity of [facility] [id number] [id number] [facility] [address] 2022-03-22 2022-03-22 Outpatient Faustina BARRAGAN [facility] [id number] Univers 13:30:00 14:44:28 EDMOND [facility] 2022-03-22 2022-03-22 Outpatient Faustina BARRAGAN [facility] [id number] Univers 13:30:00 13:30:00 EDMOND [facility] 2022-03-09 2022-03-09 Telephone [facility] [id number] Univers 00:00:00 00:00:00 Jovana Pham PRODUCER [id number] ity of [facility] [id number] Danny as MATERNAL [id number] [facility] & CHILD [address] [place] [address] 2022-03-07 2022-03-07 [facility] [id number] Univers 13:45:00 14:55:47 Visit Jovana Pham PRODUCER [id number] ity of [facility] [id number] Danny as MATERNAL [phone] [facility] & CHILD [address] [place] [address] 2022-03-07 2022-03-07 Outpatient Faustina JEAN-BAPTISTE [facility] [id number] Univers 13:45:00 14:55:47 JOVANA segal o f [facility] 2022-03-07 2022-03-07 [facility] [id number] Univers 13:45:00 13:45:00 JOVANA ity o f [facility] 2022-03-07 2022-03-07 Orders Doctor MARCO [id number] Univers 00:00:00 00:00:00 Only Unassigned, KRISTY [id number] ity of [place] [facility] [id number] Danny as [id number] [address] 2022-02-10 2022-02-10 Outpatient R SHAYE ANIBAL [facility] B [id number] Univers 16:30:00 16:30:00 [facility] 2020-12-22 2020-12-22 Outpatient R [facility] [id number] Univers 14:45:00 14:45:00 [facility] 2020-11-11 2020-11-11 [facility] [id number] 13:07:06 13:58:50 [facility] [id number] [facility] [id number] MATERNAL [id number] & CHILD [address] [place] [address] 2020-11-11 2020-11-11 Office [facility] [id number] Univers 13:07:06 13:58:50 Visit Eligrace R PRODUCER [id number] ity of [facility] [id number] Danny as MATERNAL [id number] Med ical & CHILD [address] [place] [address] 2020-11-11 2020-11-11 Outpatient [facility] [id number] Univers 13:00:00 13:00:00 DARÍOA ity o f [facility] 2020-11-04 2020-11-04 Office [facility] [id number] Univers 09:13:45 09:57:42 Visit Eligrace R PRODUCER [id number] ity of [facility] [id number] Danny as MATERNAL [id number] Med ical & CHILD [address] [place] [address] 2020-11-04 2020-11-04 Outpatient Faustina LOFTON [facility] [id number] Univers 09:30:00 09:30:00 DARWIN zabala [facility] Results This patient has no known results.
[2022-12-28 09:30] LABS: Urine Blood 3+ (Negative); Urine Glucose Negative (Negative); Urine Protein 3+ (Negative); Urine Specific Gravity >=1.030 (1.005-1.030)
[2022-12-28] MEDS ORDERED: KETOROLAC 30 MG/ML INJ ONE (09:36)
[2022-12-28] MEDS ORDERED: NA CHLORIDE 0.9% 1,000 ML ONE (09:37)
[2022-12-28 09:44] LABS: Urine Bacteria <20 /HPF (<20); Urine Mucus 1+ /HPF (None Seen); Urine RBC >50 /HPF (None Seen); Urine WBC Clump Occasional /HPF (None Seen)
[2022-12-28 09:49] LABS: Absolute Lymphocytes (CBC) 0.8 K/uL (0.7-4.9); Hematocrit 39.8 % (36.0-45.0); Lymphocytes % 14.6 % (15.3-44.8); MCV 81.5 fL (80-100); MPV 9.5 fL (7.6-11.3); RBC Red Blood Cell Count 4.88 M/uL (3.86-4.86)
[2022-12-28 09:51] LABS: Urine Specific Gravity/Preg >1.030 (1.005-1.030)
[2022-12-28 10:15] LABS: Albumin 3.9 g/dL (3.4-5.0); Bilirubin Total 0.4 mg/dL (0.2-1.0); Potassium 3.9 mmol/L (3.5-5.1); Protein, Total 7.9 g/dL (6.4-8.2)
--- NOTE | 2022-12-28 11:10 | RAD REPORT ---
EXAM DESCRIPTION: CT - Abdomen Pelvis W Contrast - 12/28/2022 10:42 am CLINICAL HISTORY: Abdominal pain/flank pain COMPARISON: 2020 TECHNIQUE: Computed axial tomography of the abdomen pelvis was obtained. 100 cc Isovue-300 was admin istered intravenously. Oral contrast was not requested which limits evaluation of bowel and appendix All CT scans are performed using dose optimization technique as appropriate and may include automated exposure control or mA/KV adjustment according to patient size. FINDINGS: Liver, spleen, pancreas, adrenals and left kidney are unremarkable Mild dilatation of a right extrarenal pelvis. There is enhancement of the wall. Mild thickening of the wall of the bladder. IUD present within the uterus. 2 centimeter cyst lies posterior to the right of the uterus probably an ovarian cyst. Small amount of ascites is present. Tubular fluid-filled structure is present within the left adnexal. Appendix appears normal IMPRESSION: Enhancement of the wall of the right renal pelvis. Mild bladder wall thickening. These m ay indicate infection. 2 centimeter right ovarian cyst with a small amount of free fluid. Tubular structure left adnexa equivocal for a a dilated fallopian tube.
--- NOTE | 2022-12-28 12:07 | RAD REPORT ---
EXAM DESCRIPTION: US - Transvaginal Study Probe - 12/28/2022 11:47 am CLINICAL HISTORY: Pelvic pain COMPARISON: CT abdomen December 28, 2022 FINDINGS: The uterus measures 9 x 5 x 6 cm. A fibroid is not seen. The endometrial stripe is normal thickness. An IUD is in good position. The ovaries are normal in size and echotexture. Normal blood flow. 2 centimeter right ovarian cyst The right and left adnexa unremarkable Dilated fallopian tube is not visualized Small amount of free fluid IMPRESSION: 2 centimeter right ovarian cyst with a small amount of free fluid
--- NOTE | 2022-12-28 12:23 | ER ---
Nurse's Notes [facility] Name: Minerva Fry Age: 32 yrs Sex: Female : 1990 Arrival Date: 12/28/2022 Time: 09:17 Bed 6 Private MD: Diagnosis: Other ovarian cysts;Acute cystitis Presentation: 12/28 09:19 Chief complaint: Patient states: urinary frequency and urgency that began Sunday, aa5 reports right low back pain that began last night. 09:19 Method Of Arrival: Ambulatory aa5 09:19 Coronavirus screen: At this time, the client does not indicate any symptoms associated aa5 with coronavirus-19. Ebola Screen: Patient denies travel to an Ebola-affected area in the 21 days before illness onset. Initial Sepsis Screen: Does the patient meet any 2 criteria? No. Patient's initial sepsis screen is negative. Does the patient have a suspected source of infection? No. Patient's initial sepsis screen is negative. Risk Assessment: Do you want to hurt yourself or someone else? Patient reports no desire to harm self or others. Onset of symptoms was December 2022. 09:19 Acuity: BRANDON 3 aa5 Historical: - Allergies: 09:30 No Known Allergies; aa5 - PMHx: 09:30 None; aa5 - PSHx: 09:30 None; aa5 - Immunization history:: Adult Immunizations unknown. - Social history:: Smoking status: Patient denies any tobacco usage or history of. Screenin:30 [facility] ED Fall Risk Assessment (Adult) History of falling in the last 3 months, ko1 including since admission No falls in past 3 months (0 pts) Confusion or Disorientation No (0 pts) Intoxicated or Sedated No (0 pts) Impaired Gait No (0 pts) Mobility Assist Device Used No (0 pt) Altered Elimination No (0 pt) Score/Fall Risk Level 0 - 2 = Low Risk Oriented to surroundings, Maintained a safe environment, Educated pt \T\ family on fall prevention, incl call for assistance when getting out of bed, Assessed \T\ reinforced patient's understanding of fall precautions, Provided non-skid footwear, Hourly rounding (assess needs \T\ fall precautionary measures) done, Used ambulatory aids as needed (educated on \T\ assisted with), Used gait belt as appropriate. Abuse screen: Denies threats or abuse. Denies injuries from another. Nutritional screening: No deficits noted. Tuberculosis screening: No symptoms or risk factors identified. Assessment: 09:30 Pain: Complains of pain in left low back and right low back. Neuro: Level of ko1 Consciousness is awake, alert, obeys commands, Oriented to person, place, time, situation, Appropriate for age. 09:30 General: Appears in no apparent distress. comfortable, Behavior is calm, cooperative, ko1 appropriate for age. Cardiovascular: No deficits noted. Respiratory: No deficits noted. GI: No deficits noted. : Reports urgency. EENT: No deficits noted. Derm: No deficits noted. Musculoskeletal: No deficits noted. Vital Signs: 09:19 BP 115 / 81; Pulse 67; Resp 18 S; Temp 98(O); Pulse Ox 97% on R/A; Weight 68.04 kg (R); aa5 Height 5 ft. 6 in. (R); 09:30 BP 118 / 90; Pulse 64; Resp 18; Pulse Ox 100% ; ko1 10:21 BP 106 / 72; Pulse 61; Pulse Ox 100% ; ko1 09:19 Body Mass Index 24.21 (68.04 kg, 167.64 cm) aa5 ED Course: 09:17 Patient arrived in ED. mr 09:19 TimJo Ann [facility]NP-C [facility]. kb 09:19 Eleazar Sheridan MD is Attending Physician. kb 09:19 Arm band placed on. aa5 09:21 Isabella Larson, ORIANA is Primary Nurse. ko1 09:30 Patient has correct armband on for positive identification. Bed in low position. Call ko1 light in reach. Pulse ox on. NIBP on. Door closed. Lights dimmed. Warm blanket given. 09:30 Inserted saline lock: 20 gauge in right antecubital area, using aseptic technique. ko1 Blood collected. 09:31 Triage completed. aa5 09:34 Urine Dipstick-Ancillary Sent. kj1 09:44 CBC with Diff Sent. ko1 09:44 CMP Sent. ko1 09:44 Lipase Sent. ko1 09:44 Urine Microscopic Only Sent. ko1 09:44 Urine Culture Sent. ko1 09:44 Urine --Ancillary (enter results) Sent. ko1 10:43 CT Abd/Pelvis - IV Contrast Only In Process Unspecified. EDMS 11:48 US Transvaginal Study (Probe) In Process Unspecified. EDMS Administered Medications: 09:44 Drug: NS 0.9% IV 1000 ml Route: IV; Rate: 1 bolus; Site: right antecubital; ko1 09:44 Drug: TORadol - Ketorolac IVP 15 mg Route: IVP; Site: right antecubital; ko1 Medication: 09:30 VIS not applicable for this client. ko1 Outcome: 12:23 Discharge ordered by MD. rodriges Signatures: Dispatcher [employer] EDMS Jo Ann Dumont, DANIELLEC LAB HEAD-Yoana Lucas Terri Guerrero, RN RN [email or web address] Nayeli Dumont kj1 Isabella Larson RN RN ko1 Corrections: (The following items were deleted from the chart) 09:47 09:30 Pain: Complains of pain in back ko1 ko1
--- NOTE | 2022-12-28 12:23 | EDPHYS ---
Physician Documentation [facility] Name: Minerva Fry Age: 32 yrs Sex: Female : 1990 Arrival Date: 12/28/2022 Time: 09:17 Bed 6 Private MD: ED Physician Eleazar Sheridan Historical: - Allergies: 12/28 09:30 No Known Allergies; aa5 - PMHx: 09:30 None; aa5 - PSHx: 09:30 None; aa5 - Immunization history:: Adult Immunizations unknown. - Social history:: Smoking status: Patient denies any tobacco usage or history of. Vital Signs: 09:19 BP 115 / 81; Pulse 67; Resp 18 S; Temp 98(O); Pulse Ox 97% on R/A; Weight 68.04 kg (R); aa5 Height 5 ft. 6 in. (R); 09:30 BP 118 / 90; Pulse 64; Resp 18; Pulse Ox 100% ; ko1 10:21 BP 106 / 72; Pulse 61; Pulse Ox 100% ; ko1 09:19 Body Mass Index 24.21 (68.04 kg, 167.64 cm) aa5 MDM: 09:19 Patient medically screened. kb 12/28 09:28 Order name: Urine Dipstick-Ancillary (obtain specimen); Complete Time: 09:29 aa5 12/28 09:29 Order name: IV Saline Lock; Complete Time: 09:31 kb 12/28 09:29 Order name: Labs collected and sent; Complete Time: 09:31 kb 12/28 09:31 Order name: Urine Dipstick-Ancillary EDIL 12/28 09:30 Order name: Urine Dipstick-Ancillary; Complete Time: 09:36 EDMS 12/28 09:28 Order name: Urine Culture aa5 12/28 09:29 Order name: Urine Microscopic Only; Complete Time: 09:55 kb 12/28 09:29 Order name: CBC with Diff; Complete Time: 09:55 kb 12/28 09:35 Order name: Urine --Ancillary (enter results); Complete Time: 09:55 bd 12/28 09:29 Order name: CMP; Complete Time: 10:22 kb 12/28 09:29 Order name: Lipase; Complete Time: 10:22 kb 12/28 09:29 Order name: CT Abd/Pelvis - IV Contrast Only; Complete Time: 11:13 kb 12/28 11:14 Order name: US Transvaginal Study (Probe); Complete Time: 12:08 kb Administered Medications: 09:44 Drug: NS 0.9% IV 1000 ml Route: IV; Rate: 1 bolus; Site: right antecubital; ko1 09:44 Drug: TORadol - Ketorolac IVP 15 mg Route: IVP; Site: right antecubital; ko1 Disposition Summary: 12/28/22 12:23 Discharge Ordered Location: Home kb Condition: Stable kb Diagnosis - Other ovarian cysts kb - Acute cystitis kb Followup: kb - With: Emergency Department - When: As needed - Reason: Worsening of condition Followup: kb - With: Private Physician - When: 2 - 3 days - Reason: Recheck today's complaints, Continuance of care, Re-evaluation by your physician Forms: - Medication Reconciliation Form kb - Thank You Letter kb - Antibiotic Education kb - Prescription Opioid Use kb Signatures: Dispatcher [employer] Jo Ann Devlin, STUD MASTER/MISTRESS-C STUD MASTER/MISTRESS-Terri Fraser, RN RN aa5 Isabella Larson, RN RN ko1
[2022-12-28 16:20] VITALS: BP 107/80; TEMP 97.5; O2SAT 99
== END 2022-12-28 12:36 | disposition home or self-care (01) ==
LOC: ER 09:14
DX: N30.00 Acute cystitis without hematuria (principal); N83.299 Other ovarian cyst, unspecified side
CPT/HCPCS: 36415; 74177; 76830; 80053; 81003; 81015; 81025; 83690; 85025; 87077; 87086; 87088; 87186; 96361; 96374; 99284; J7030; Q9967

== ENCOUNTER 2024-09-02 23:35 | Emergency (ER) | payer SELFPAY ==
--- OUTSIDE RECORDS SUMMARY | 2024-09-02 23:39 | XMS REPORT | Continuity of Care Document ---
Author Name Unknown Address [address] [facility] [address] [place] [address] [facility] Address [address] [facility]. [address] [place] [address] Care Team Providers Care Bag Presser Name Role Phone PCP, PATIENT DOES NOT HAVE A Primary Care Physic reji Unavailable YADIRA MARIO Attending Clinician Unavailab le Doctor Unassigned, [place] Attending Clinician U Sherlyn Velasquez MD Attending Clinician [phone] Stacey Benoit Attending Clinician [phone] DARWIN LOFTON Attending Clinician Unavailab DAVID Price Attending Clinician Unavailable Pgy1 Attending Clinician Unavailable Edmond Barragan MD Attending Clinician [phone] EDMODN BARRAGAN Attending Clinician Unavailabl fox Damico Jovana PEÑA Attending Clinician + JOVANA DAMICO Attending Clinician Unavail ANIBAL Ruffin Attending Clinician UnavailANIBAL Osorio Attending Clinician UnavailDarwin Chen Attending Clinician Unava ilYADIRA Baum Admitting Clinician Unavailab enrique Payers Payer Name Policy Type Policy Number Effective Date Expirati on Date Source Problems Condition Name Condition Details Condition Category Status Onset Date Resolution Date Last Treatment Date Treating Clinician Comments Source Well woman exam Well woman exam Disease Active 03-07 00:00: 00 [facility] IUD (intrauter ine device) in place IUD (intrauter ine device) in place Disease Active 11-10 00:00: 00 [facility] Anemia of mother in , antepartum , third trimester Anemia of mother in , antepartum , third trimester Disease Active 2014-10 00:00: 00 [facility] Anemia of mother in , antepartum , third trimester Anemia of mother in , antepartum , third trimester Disease Active 2014-10 00:00: 00 [facility] Sickle cell trait Sickle cell trait Disease Active 06-26 00:00: 00 [facility] Screening examinatio n for STD (sexually transmitte d disease) Screening examinatio n for STD (sexually transmitte d disease) Disease Active 02-28 00:00: 00 Overview: Formattin g of this note might be different from the original. hgb electroph oresis in process [facility] Allergies, Adverse Reactions, Alerts Allergy Name Allergy Type Status Severity Reaction(s) Onset Date Inactive Date Treating Clinician Comments Source NO KNOWN ALLERGIE S Drug Class Active [facility] Social History Social Habit Start Date Stop Date Quantity Comments Source [facility] intake 2024-02-22 00:00:00 2024-02-22 00:00:00 0 /d [facility] Exposure to SARS-CoV-2 (event) 2022-04-17 00:00:00 2022-04-27 07:48:00 Not sure [facility] History of Social function 2022-03-07 00:00:00 2022-03-07 00:00:00 [facility] Alcohol intake 2020-11-11 00:00:00 2020-11-11 00:00:00 0 /d [facility] Sex assigned at 1990 00:00:00 1990 00:00:00 [facility] Smoking Status Start Date Stop Date Source Never smoked tobacco [facility] Medications Ordered Medication Name Filled Medication Name Start Date Stop Date Current Medication? Ordering Clinician Indication Dosage Frequency Signature (SIG) Comments Components Source HYDROcodone -acetaminop hen (NORCO 5) 5-325 mg tablet 1 tablet 02-21 20:00: 00 02-21 20:32 :00 No 1{tbl} 1 tablet, Oral, ONCE, 1 dose, On Sun02/22/24 at 1500, SIRISHA [facility] methocarbam oL (ROBAXIN) tablet 1,000 mg 02-21 16:15: 00 02-21 17:49 :00 No 1000mg 1,000 mg, Oral, ONCE, 1 dose, On Sun02/22/24 at 1115, [facility] cyclobenzap rine 10 mg tablet 02-21 00:00: 00 Yes [id number] 10mg Take 1 tablet by mouth every 8 (eight) hours as needed for Muscle Spasms. [facility] ibuprofen 600 mg tablet 02-21 00:00: 00 Yes [id number] 600mg Take 1 tablet by mouth every 6 (six) hours as needed for Pain (scale 4-6). [facility] miSOPROStoL 200 mcg tablet 05-15 00:00: 00 05-17 04:59 :00 No [id number] 200ug Take 1 tablet by mouth every 12 (twelve) hours for 2 doses. Take one tablet night before procedure, take one tablet morning of procedure [facility] diazePAM 10 mg tablet 05-15 00:00: 00 05-16 04:59 :00 No [id number] 10mg Take 1 tablet by mouth once now for 1 dose. Bring to clinic to take before procedure (await instructio ns before taking) [facility] No known medications 03-22 15:03: 52 No No known medication s [facility] Immunizations Ordered Immunization Name Filled Immunization Name Date Status Comments Source HPV9 2022-03-07 00:00:00 Completed [facility] HPV9 2022-03-07 00:00:00 Completed [facility] Influenza Virus Vaccine Quad IM 3+ YRS 2015-07-20 00:00:00 Completed [facility] TDAP 2015-07-20 00:00:00 Completed [facility] Influenza Virus Vaccine Quad IM 3+ YRS 2015-07-20 00:00:00 Completed [facility] TDAP 2015-07-20 00:00:00 Completed [facility] TDAP 2011-04-19 00:00:00 Completed [facility] TDAP 2011-04-19 00:00:00 Completed [facility] TDAP Unknown Completed [facility] Influenza Virus Vaccine Quad IM 3+ YRS Unknown Completed [facility] HPV9 Unknown Completed [facility] TDAP Unknown Completed [facility] Influenza Virus Vaccine Quad IM 3+ YRS Unknown Completed [facility] TDAP Unknown Completed [facility] Influenza Virus Vaccine Quad IM 3+ YRS Unknown Completed [facility] TDAP Unknown Completed [facility] Influenza Virus Vaccine Quad IM 3+ YRS Unknown Completed [facility] HPV9 Unknown Completed [facility] Vital Signs Vital Name Observation Time Observation Value Comments S ource Systolic blood pressure 2024-02-22 20:32:00 112 mm[Hg] [facility] Diastolic blood pressure 2024-02-22 20:32:00 74 mm[Hg] [facility] Heart rate 2024-02-22 20:32:00 57 /min [facility] Body temperature 2024-02-22 20:32:00 36.61 Felecia [facility] Respiratory rate 2024-02-22 20:32:00 16 /min [facility] Oxygen saturation in Arterial blood by Pulse oximetry 2024-02-22 20:32:00 99 /min [facility] Body height 2024-02-22 15:35:00 167.6 cm [facility] Body weight 2024-02-22 15:35:00 71.396 kg [facility] BMI 2024-02-22 15:35:00 25.41 kg/m2 [facility] Procedures Procedure Date / Time Performed Performing Clinicia n Source POCT TEST 2024-02-22 17:50:00 Angelina Mario [facility] XR CERVICAL SPINE 2 VW 2024-02-22 16:55:00 Yadira Mario [facility] Encounters Start Date/Time End Date/Time Encounter Type Admission Type Attending Clinicians Care Facility Care Department Encounter ID Source 2024-02-22 10:36:00 2024-02-22 15:35:00 Emergency X YADIRA MARIO [facility] ERT [id number] [facility] 2024-02-22 10:36:00 2024-02-22 15:35:00 Emergency Yadira Mario [facility] 1..840.114 350.1.13.10 4.2.7.2.686 [id number] [facility] 2022-05-29 00:00:00 2022-05-29 00:00:00 Patient Secure Msg Doctor Unassigned, [place]er [facility] 1.840.114 350.1.13.10 4.2.7.2.686 [id number] [facility] 2022-05-26 00:00:00 2022-05-26 00:00:00 Case Management Sherlyn Cohen [facility] 1.840.114 350.1.13.10 4.2.7.2.686 [id number] [facility] 2022-05-09 00:00:00 2022-05-09 00:00:00 Telephone Stacey Duncan [facility] 1.840.114 350.1.13.10 4.2.7.2.686 [id number] [facility] 2022-05-08 09:00:00 2022-05-08 09:00:00 Outpatient R DARWIN LOFTON [facility] [id number] [facility] 2022-05-08 09:00:00 2022-05-08 09:00:00 Outpatient R [facility] [id number] [facility] 2022-04-27 12:00:00 2022-04-27 12:00:00 Outpatient R BRITTNEYM, RANIA [facility] [id number] [facility] 2022-03-23 00:00:00 2022-03-23 00:00:00 Orders Only Doctor Unassigned, [place]er [facility] 1..114 350.1.13.10 4.2.7.2.686 [id number] [facility] 2022-03-22 13:30:00 2022-03-22 14:44:28 Office Visit Pgy1 Edmond Barragan [facility] 1..114 350.1.13.10 4.2.7.2.686 [id number] [facility] 2022-03-22 13:30:00 2022-03-22 14:44:28 Outpatient EDMOND DAIGLE [facility] [id number] [facility] 2022-03-22 13:30:00 2022-03-22 13:30:00 Outpatient EDMOND DAIGLE [facility] [id number] [facility] 2022-03-09 00:00:00 2022-03-09 00:00:00 Telephone Jovana Damico [facility] [employer] [facility] & [facility]ILD [facility] 1.84.114 350.1.13.10 4.2.7.2.686 [id number] [facility] 2022-03-07 13:45:00 2022-03-07 14:55:47 Office Visit Jovana Damico [facility] [employer] [facility] & CHILD [facility] 1..114 350.1.13.10 4.2.7.2.686 [id number] [facility] 2022-03-07 13:45:00 2022-03-07 14:55:47 Outpatient JOVANA ERAZO [facility] [id number] [facility] 2022-03-07 13:45:00 2022-03-07 13:45:00 Outpatient R JOVANA DAMICO [facility] [id number] [facility] 2022-03-07 00:00:00 2022-03-07 00:00:00 Orders Only Doctor Unassigned, [place] [facility] 1.2.114 350.1.13.10 4.2.7.2.686 [id number] [facility] 2022-02-10 16:30:00 2022-02-10 16:30:00 Outpatient R ANIBAL CR FRANCISCOADIJONNYMINI [facility] [id number] [facility] 2022-02-09 00:00:00 2022-02-09 00:00:00 Patient Secure Msg Doctor Unassigned, [place] [facility] 1..114 350.1.13.10 4.2.7.2.686 [id number] [facility] 2021-08-25 00:00:00 2021-08-25 00:00:00 Patient Secure Msg Darwin Lofton [facility] [employer] [facility] & CHILD [facility] 1.840.114 350.1.13.10 4.2.7.2.686 [id number] [facility] 2020-12-22 14:45:00 2020-12-22 14:45:00 Outpatient R [facility] [id number] [facility] 2020-11-11 13:07:06 2020-11-11 13:58:50 Office Visit Darwin Lofton [facility] [employer] [facility] 1..114 350.1.13.10 4.2.7.2.686 [id number] 2020-11-11 13:07:06 2020-11-11 13:58:50 Office Visit Darwin Lofton [facility] [employer] [facility] 1.2.840.114 350.1.13.10 4.2.7.2.686 [id number] [facility] 2020-11-11 13:00:00 2020-11-11 13:00:00 Outpatient R DARWIN LOFTON [facility] [id number] [facility] 2020-11-04 09:13:45 2020-11-04 09:57:42 Office Visit Darwin Lofton [facility] [employer] [facility] 1.2.840.114 350.1.13.10 4.2.7.2.686 [id number] [facility] 2020-11-04 09:30:00 2020-11-04 09:30:00 Outpatient PHYLLIS WISEMANCARSON [facility] [id number] [facility] Results Test Description Test Time Test Comments Results Resul t Comments Source XR CERVICAL SPINE 2 VW 2024-02-22 19:40:33 EXAM: XR CERVICAL SPINE 2 VW HISTORY: neck COMPARISON: None. [facility] Notes Date/Time Note Provider Source 2024-02-22 15:34:07 Pt alert cheerful in no distress, written/verbal d/c instructions, erx x2, out of er no distress [facility] 2024-02-22 10:35:13 Minerva Fry is a 33 year old female c/o neck pain for 4 months, denies injury, T Halley Armenta RN [facility]
[2024-09-03] MEDS ORDERED: IBUPROFEN 200 MG TAB PO ONE (00:11)
--- NOTE | 2024-09-03 00:55 | ER ---
Nurse's Notes [facility] Name: Minerva Fry Age: 33 yrs Sex: Female : 1990 Arrival Date: 09/02/2024 Time: 23:35 Bed 10 Private MD: Diagnosis: Pain in right hand Presentation: 09/02 23:47 Chief complaint: Patient states: I fell from standing and tried to catch myself with my jb4 right hand and injured my right pinky. Coronavirus screen: At this time, the client does not indicate any symptoms associated with coronavirus-19. Ebola Screen: No symptoms or risks identified at this time. Initial Sepsis Screen: Does the patient meet any 2 criteria? HR > 90 bpm. Yes Does the patient have a suspected source of infection? No. Patient's initial sepsis screen is negative. Risk Assessment: Do you want to hurt yourself or someone else? Patient reports no desire to harm self or others. Onset of symptoms was September 02, 2024. Transition of care: patient was not received from another setting of care. 23:47 Method Of Arrival: Ambulatory jb4 23:47 Acuity: BRANDON 4 jb4 Triage Assessment: 23:50 General: Appears in no apparent distress. uncomfortable, Behavior is calm, cooperative, jb4 appropriate for age. Pain: Complains of pain in palmar aspect of distal phalanx of right little finger, palmar aspect of middle phalanx of right little finger, Palmar aspect of proximal phalanx of right little finger and outer aspect of right palm Pain does not radiate. Pain currently is 6 out of 10 on a pain scale. Quality of pain is described as tingling, throbbing. Neuro: Level of Consciousness is awake, alert, obeys commands, Oriented to person, place, time, situation. Cardiovascular: Patient's skin is warm and dry. Respiratory: Airway is patent Respiratory effort is even, unlabored, Respiratory pattern is regular, symmetrical. Derm: Skin is intact, Skin is dry, Skin is normal, Skin temperature is warm. Musculoskeletal: Circulation, motion, and sensation intact. Range of motion: intact in all extremities. Injury Description: Bruise sustained to outer aspect of right palm is purple. 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 - Infectious Disease History:: Denies. - Social history:: Smoking status: Patient denies any tobacco usage or history of. Screenin:53 [facility] ED Fall Risk Assessment (Adult) History of falling in the last 3 months, jb4 including since admission No falls in past 3 months (0 pts) Confusion or Disorientation No (0 pts) Intoxicated or Sedated No (0 pts) Impaired Gait No (0 pts) Mobility Assist Device Used No (0 pt) Altered Elimination No (0 pt) Score/Fall Risk Level 0 - 2 = Low Risk Oriented to surroundings, Maintained a safe environment. Abuse screen: Denies threats or abuse. Nutritional screening: No deficits noted. Tuberculosis screening: No symptoms or risk factors identified. Assessment: 23:53 Reassessment: see triage note. jb4 09/03 01:05 Reassessment: Patient appears in no apparent distress at this time. Patient and/or jb4 family updated on plan of care and expected duration. Pain level reassessed. Patient is alert, oriented x 3, equal unlabored respirations, skin warm/dry/pink. yuniel wrap applied to right wrist. Vital Signs: 09/02 23:47 BP 112 / 76; Pulse 91; Resp 16; Temp 97.2(TE); Pulse Ox 99% ; Weight 73.03 kg (R); jb4 Height 5 ft. 6 in. (R); 23:47 Body Mass Index 25.99 (73.03 kg, 167.64 cm) jb4 ED Course: 23:41 Patient arrived in ED. gm2 23:43 Jo Ann Dumont FNP-C is [facility]. kb 23:43 Zack Pardo MD is Attending Physician. kb 23:50 Triage completed. jb4 23:50 Arm band placed on right wrist. jb4 23:53 Patient has correct armband on for positive identification. Bed in low position. Call jb4 light in reach. Side rails up X 1. Provided Education on: plan of care. 23:53 No provider procedures requiring assistance completed. Patient did not have IV access jb4 during this emergency room visit. 23:54 Ovidio Conway, RN is Primary Nurse. jb4 09/03 00:23 Hand Right 3 View XRAY In Process Unspecified. EDMS Administered Medications: 00:32 Drug: Ibuprofen PO 600 mg PO once Route: PO; jb4 01:05 Follow up: Response: No adverse reaction; Marked relief of symptoms; Pain is decreased jb4 Medication: 09/02 23:53 VIS not applicable for this client. jb4 Outcome: 09/03 00:55 Discharge ordered by . zahira 01:06 Discharged to home ambulatory, jb4 01:06 Condition: stable 01:06 Discharge instructions given to patient, Instructed on discharge instructions, follow up and referral plans. Demonstrated understanding of instructions, follow-up care, 01:06 Patient left the ED. jb4 Signatures: Dispatcher [employer] EDMS Jo Ann Dumont, MEDICARE BILLER-C MEDICARE BILLER-Ckb Ovidio Conway, RN RN jb4 Shelby Mcdaniel 2
--- NOTE | 2024-09-03 00:55 | EDPHYS ---
Physician Documentation [facility] Name: Minerva Fry Age: 33 yrs Sex: Female : 1990 Arrival Date: 09/02/2024 Time: 23:35 Bed 10 Private MD: ED Physician Zack Pardo HPI: 09/03 00:27 This 33 yrs old Black Female presents to ER via Ambulatory with complaints of Hand kb Injury. 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 Denies any other injuries. . 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 - Infectious Disease History:: Denies. - Social history:: Smoking status: Patient denies any tobacco usage or history of. ROS: 09/03 00:26 Constitutional: As per HPI kb Exam: 00:26 Constitutional: This is a well developed, well nourished patient who is awake, alert, kb and in no acute distress. Head/Face: Normocephalic, atraumatic. ENT: Moist Mucous membranes Cardiovascular: Regular rate Respiratory: Respirations even and unlabored. No increased work of breathing. Talking in full sentences Skin: Warm, dry with normal turgor. Normal color. Neuro: Awake and alert, GCS 15, oriented to person, place, time, and situation. 00:26 Musculoskeletal/extremity: Extremities: grossly normal except: noted in the right little finger and dorsum of right hand: pain, tenderness, ROM: intact in all extremities, Circulation is intact in all extremities. Sensation intact. Vital Signs: 09/02 23:47 BP 112 / 76; Pulse 91; Resp 16; Temp 97.2(TE); Pulse Ox 99% ; Weight 73.03 kg (R); jb4 Height 5 ft. 6 in. (R); 23:47 Body Mass Index 25.99 (73.03 kg, 167.64 cm) jb4 MDM: 23:43 Medical Screening Exam initiated kb 09/03 00:27 Differential diagnosis: closed fracture, contusion, sprain. Data reviewed: vital signs, kb nurses notes. Independent interpretation of the following test(s) in the Emergency Department X-Ray: My interpretation is no fracture. Counseling: I had a detailed discussion with the patient and/or guardian regarding the historical points, exam findings, and any diagnostic results supporting the discharge/admit diagnosis, radiology results, the need for outpatient follow up, a orthopedic surgeon, to return to the emergency department if symptoms worsen or persist or if there are any questions or concerns that arise at home. 09/02 23:51 Order name: Hand Right 3 View XRAY kb Administered Medications: 00:32 Drug: Ibuprofen PO 600 mg PO once Route: PO; jb4 01:05 Follow up: Response: No adverse reaction; Marked relief of symptoms; Pain is decreased jb4 Disposition: 22:49 Co-signature as Attending Physician, Zack Pardo MD I agree with the assessment sp4 and plan of care. I reviewed the patient's care provided by the Advanced Practice Provider and agree with the diagnosis and treatment plan. Disposition Summary: 09/03/24 00:55 Discharge Ordered Notes: Location: Home kb Condition: Stable kb Diagnosis - Pain in right hand kb Followup: kb - With: Emergency Department - When: As needed - Reason: Worsening of condition Followup: kb - With: Private Physician - When: 2 - 3 days - Reason: Recheck today's complaints, Continuance of care, Re-evaluation by your physician Discharge Instructions: - Discharge Summary Sheet kb - Musculoskeletal Pain kb Forms: - Medication Reconciliation Form kb - Antibiotic Education kb - Prescription Opioid Use kb - Patient Portal Instructions kb - Leadership Thank You Letter kb Signatures: Dispatcher [employer] Jo Ann Devlin FNP-C FNP-Ovidio Garza, RN RN jb4 Zack Pardo MD MD sp4
[2024-09-03 01:12] VITALS: BP 112/76; TEMP 97.2; O2SAT 99
--- NOTE | 2024-09-03 06:07 | RAD REPORT ---
EXAM DESCRIPTION: Hand Right 3 View CLINICAL HISTORY: 33 years Female Pain. COMPARISON: None. TECHNIQUE: 3 view study of the Right hand were performed. FINDINGS: No acute fractures seen. Normal bony mineralization. No erosive or lytic lesions. No cortical disruption. No abnormal perioste al reaction. IMPRESSION: No acute fracture or dislocation seen. No significant degenerative change. Electronically signed by: Etta Raines MD 09/03/2024 01:06 AM [facility] Due to temporary technical issues with the [employer] reporting system, reports are being rick d by the in-house radiologist without review as a courtesy to ensure prompt reporting the interpreting radiologist is fully responsible for the content of the report. Transcribed Date/Time: 09/03/2024 6:07 AM
== END 2024-09-03 01:06 | disposition home or self-care (01) ==
LOC: ER 23:35
DX: M79.641 Pain in right hand (principal)

== ENCOUNTER 2025-01-25 12:08 | Emergency (ER) | payer SELFPAY ==
--- OUTSIDE RECORDS SUMMARY | 2025-01-25 12:12 | XMS REPORT | Continuity of Care Document ---
Author Name Unknown Address [address] [facility] [place] [address] Organization [facility] Address [address] [facility] [facility] [place] [address] Care Team Providers Care Leathersmith Name Role Phone PCP, PATIENT DOES NOT HAVE A Primary Care Physic reji Unavailable YADIRA MARIO Attending Clinician Unavailab le Doctor Unassigned, [place] Attending Clinician U Sherlyn Velasquez MD Attending Clinician [phone] Stacey Benoit Attending Clinician [phone] DARWIN LOFTON Attending Clinician Unavailab DAVID Price Attending Clinician Unavailable Pgy1 Attending Clinician Unavailable Edmond Barragan MD Attending Clinician [phone] EDMOND BARRAGAN Attending Clinician Unavailabl e Jovana Nunez Attending Clinician + JOVANA DAMICO Attending Clinician Unavail ANIBAL Ruffin Attending Clinician UnavailANIBAL Osorio Attending Clinician UnavailaDrwin Chen Attending Clinician Unava ilYADIRA Baum Admitting Clinician Unavailab enrique Payers Payer Name Policy Type Policy Number Effective Date Expirati on Date Source Problems Condition Name Condition Details Condition Category Status Onset Date Resolution Date Last Treatment Date Treating Clinician Comments Source Well woman exam Well woman exam Disease Active 03-07 00:00: 00 [facility] IUD (intrauter ine device) in place IUD (intrauter ine device) in place Disease Active 11-10 00:00: 00 [facility] Anemia of mother in , antepartum , third trimester Anemia of mother in , antepartum , third trimester Disease Active 2014-10 00:00: 00 [facility] Anemia of mother in , antepartum , third trimester Anemia of mother in , antepartum , third trimester Disease Active 2014-10 00:00: 00 [facility] Sickle cell trait Sickle cell trait Disease Active 06-26 00:00: 00 [facility] Screening examinatio n for STD (sexually transmitte d disease) Screening examinatio n for STD (sexually transmitte d disease) Disease Active 02-28 00:00: 00 Overview: Formattin g of this note might be different from the original. hgb electroph oresis in process [facility] Allergies, Adverse Reactions, Alerts Allergy Name Allergy Type Status Severity Reaction(s) Onset Date Inactive Date Treating Clinician Comments Source NO KNOWN ALLERGIE S Drug Class Active [facility] Social History Social Habit Start Date Stop Date Quantity Comments Source [facility] intake 2024-02-22 00:00:00 2024-02-22 00:00:00 0 /d [facility] Exposure to SARS-CoV-2 (event) 2022-04-17 00:00:00 2022-04-27 07:48:00 Not sure [facility] History of Social function 2022-03-07 00:00:00 2022-03-07 00:00:00 [facility] Alcohol intake 2020-11-11 00:00:00 2020-11-11 00:00:00 0 /d [facility] Sex assigned at 1990 00:00:00 1990 00:00:00 [facility] Smoking Status Start Date Stop Date Source Never smoked tobacco [facility] Medications Ordered Medication Name Filled Medication Name Start Date Stop Date Current Medication? Ordering Clinician Indication Dosage Frequency Signature (SIG) Comments Components Source HYDROcodone -acetaminop hen (NORCO 5) 5-325 mg tablet 1 tablet 02-21 20:00: 00 02-21 20:32 :00 No 1{tbl} 1 tablet, Oral, ONCE, 1 dose, On Sun02/22/24 at 1500, SIRIS[facility] methocarbam oL (ROBAXIN) tablet 1,000 mg 02-21 16:15: 00 02-21 17:49 :00 No 1000mg 1,000 mg, Oral, ONCE, 1 dose, On Sun02/22/24 at 1115, [facility] cyclobenzap rine 10 mg tablet 02-21 00:00: 00 Yes [id number] 10mg Take 1 tablet by mouth every 8 (eight) hours as needed for Muscle Spasms. [facility] ibuprofen 600 mg tablet 02-21 00:00: 00 Yes [id number] 600mg Take 1 tablet by mouth every 6 (six) hours as needed for Pain (scale 4-6). [facility] miSOPROStoL 200 mcg tablet 05-15 00:00: 00 05-17 04:59 :00 No [id number] 200ug Take 1 tablet by mouth every 12 (twelve) hours for 2 doses. Take one tablet night before procedure, take one tablet morning of procedure [facility] diazePAM 10 mg tablet 05-15 00:00: 00 05-16 04:59 :00 No [id number] 10mg Take 1 tablet by mouth once now for 1 dose. Bring to clinic to take before procedure (await instructio ns before taking) [facility] No known medications 03-22 15:03: 52 No No known medication s [facility] Immunizations Ordered Immunization Name Filled Immunization Name Date Status Comments Source HPV9 2022-03-07 00:00:00 Completed [facility] HPV9 2022-03-07 00:00:00 Completed [facility] Influenza Virus Vaccine Quad IM 3+ YRS 2015-07-20 00:00:00 Completed [facility] TDAP 2015-07-20 00:00:00 Completed [facility] Influenza Virus Vaccine Quad IM 3+ YRS 2015-07-20 00:00:00 Completed [facility] TDAP 2015-07-20 00:00:00 Completed [facility] TDAP 2011-04-19 00:00:00 Completed [facility] TDAP 2011-04-19 00:00:00 Completed [facility] TDAP Unknown Completed [facility] Influenza Virus Vaccine Quad IM 3+ YRS Unknown Completed [facility] HPV9 Unknown Completed [facility] TDAP Unknown Completed [facility] Influenza Virus Vaccine Quad IM 3+ YRS Unknown Completed [facility] TDAP Unknown Completed [facility] Influenza Virus Vaccine Quad IM 3+ YRS Unknown Completed [facility] TDAP Unknown Completed [facility] Influenza Virus Vaccine Quad IM 3+ YRS Unknown Completed [facility] HPV9 Unknown Completed [facility] Vital Signs Vital Name Observation Time Observation Value Comments S ource Systolic blood pressure 2024-02-22 20:32:00 112 mm[Hg] [facility] Diastolic blood pressure 2024-02-22 20:32:00 74 mm[Hg] [facility] Heart rate 2024-02-22 20:32:00 57 /min [facility] Body temperature 2024-02-22 20:32:00 36.61 Felecia [facility] Respiratory rate 2024-02-22 20:32:00 16 /min [facility] Oxygen saturation in Arterial blood by Pulse oximetry 2024-02-22 20:32:00 99 /min [facility] Body height 2024-02-22 15:35:00 167.6 cm [facility] Body weight 2024-02-22 15:35:00 71.396 kg [facility] BMI 2024-02-22 15:35:00 25.41 kg/m2 [facility] Procedures Procedure Date / Time Performed Performing Clinicia n Source POCT TEST 2024-02-22 17:50:00 Angelina Mario [facility] XR CERVICAL SPINE 2 VW 2024-02-22 16:55:00 Yadira Mario [facility] Encounters Start Date/Time End Date/Time Encounter Type Admission Type Attending Clinicians Care Facility Care Department Encounter ID Source 2024-02-22 10:36:00 2024-02-22 15:35:00 Emergency X YADIRA MARIO [facility] ERT [id number] [facility] 2024-02-22 10:36:00 2024-02-22 15:35:00 Emergency Yadira Mario [facility] 1.840.114 350.1.13.10 4.2.7.2.[id number] [facility] 2022-05-29 00:00:00 2022-05-29 00:00:00 Patient Secure Msg Doctor Unassigned, [place] [facility] 1.840.114 350.1.13.10 4.2.7.2.[id number] [facility] 2022-05-26 00:00:00 2022-05-26 00:00:00 Case Management Sherlyn Cohen [facility] 1..114 350.1.13.10 4.2.7.2.[id number] [facility] 2022-05-09 00:00:00 2022-05-09 00:00:00 Telephone Stacey Duncan [facility] 1.840.114 350.1.13.10 4.2.7.2.[id number] [facility] 2022-05-08 09:00:00 2022-05-08 09:00:00 Outpatient DARWIN WISEMAN [facility] [id number] [facility] 2022-05-08 09:00:00 2022-05-08 09:00:00 Outpatient Faustina [facility] [id number] [facility] 2022-04-27 12:00:00 2022-04-27 12:00:00 Outpatient DAVID CLADERÓN [facility] [id number] [facility] 2022-03-23 00:00:00 2022-03-23 00:00:00 Orders Only Doctor Unassigned, [place] [facility] 1.0.114 350.1.13.10 4.2.7.2.[id number] [facility] 2022-03-22 13:30:00 2022-03-22 14:44:28 Office Visit Pgy1 Edmond Barragan [facility] 1..114 350.1.13.10 4.2.7.2.[id number] [facility] 2022-03-22 13:30:00 2022-03-22 14:44:28 Outpatient EDMOND DAIGLE [facility] [id number] [facility] 2022-03-22 13:30:00 2022-03-22 13:30:00 Outpatient EDMOND DAIGLE [facility] [id number] 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 2022-03-07 13:45:00 2022-03-07 14:55:47 Outpatient JOVANA ERAZO [facility] [id number] [facility] 2022-03-07 13:45:00 2022-03-07 13:45:00 Outpatient R JOVANA DAMICO [facility] [id number] [facility] 2022-03-07 00:00:00 2022-03-07 00:00:00 Orders Only Doctor Unassigned, [place] [facility] 1..114 350.1.13.10 4.2.7.2.[id number] [facility] 2022-02-10 16:30:00 2022-02-10 16:30:00 Outpatient R ANIBAL CR JONNY CRMINI [facility] [id number] [facility] 2022-02-09 00:00:00 2022-02-09 00:00:00 Patient Secure Msg Doctor Unassigned, [place] [facility] 1..114 350.1.13.10 4.2.7.2.[id number] 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 2020-12-22 14:45:00 2020-12-22 14:45:00 Outpatient R [facility] [id number] 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 2020-11-11 13:00:00 2020-11-11 13:00:00 Outpatient R DARWIN LOFTON [facility] [id number] 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 2020-11-04 09:30:00 2020-11-04 09:30:00 Outpatient PHYLLIS WISEMANCARSON [facility] [id number] [facility] Results Test Description Test Time Test Comments Results Resul t Comments Source XR CERVICAL SPINE 2 VW 2024-02-22 19:40:33 EXAM: XR CERVICAL SPINE 2 VW HISTORY: neck COMPARISON: None. [facility] Notes Date/Time Note Provider Source 2024-02-22 15:34:07 Pt alert cheerful in no distress, written/verbal d/c instructions, erx x2, out of er no distress [facility] 2024-02-22 10:35:13 Minerva Fry is a 33 year old female c/o neck pain for 4 months, denies injury, Halley Armenta RN [facility]
[2025-01-25 13:31] LABS: Absolute Monocytes 0.4 K/uL (0.1-1.3); Absolute Neutrophil 3.6 K/uL (1.8-8.0); Basophils % 0.2 % (0-1.3); Eosinophils % 0.4 % (0-4.4); Hematocrit 36.1 % (36.0-45.0); Hemoglobin 12.2 g/dL (12.0-15.0); MCH 27.3 pg (27.0-35.0); MCHC 33.8 g/dL (32.0-36.0); MCV 80.8 fL (80-100); MPV 9.4 fL (7.6-11.3); Monocytes % 7.5 % (3.3-12.3); Neutrophils % 71.9 % (41.7-73.7); Platelets 148 thou/uL (152-406); RBC Red Blood Cell Count 4.47 M/uL (3.86-4.86); Red Cell Distribution Width 13.8 % (12.1-15.2)
[2025-01-25] MEDS ORDERED: KETOROLAC 30 MG/ML INJ ONE (13:36)
[2025-01-25] MEDS ORDERED: NA CHLORIDE 0.9% 1,000 ML ONE (13:36)
[2025-01-25 13:48] LABS: PT Prothrombin Time 11.9 SECONDS (10-13.0); Protime INR 1.05
[2025-01-25 13:49] LABS: D-Dimer 0.425 FEUug/mL (0-0.500)
[2025-01-25 13:52] LABS: ALT/SGPT 24 U/L (13-56); AST/SGOT 13 U/L (15-37); Albumin 3.9 g/dL (3.4-5.0); Albumin/Globulin Ratio 1.1 (1.1-1.8); Alkaline Phosphatase 53 U/L (45-117); Anion Gap 6.7 mEq/L (5.0-15.0); BUN Blood Urea Nitrogen 14 mg/dL (7-18); Bicarbonate 29 mEq/L (21-32); Bilirubin Total 0.4 mg/dL (0.2-1.0); Globulin 3.5 g/dL (2.3-3.5); Glomerular Filtration Rate 86 ml/min (=/>90); Glucose Level 90 mg/dL (74-106); Magnesium 1.7 mg/dL (1.6-2.4); Potassium 3.7 mEq/L (3.5-5.1); Protein, Total 7.4 g/dL (6.4-8.2); Sodium Level 137 mEq/L (136-145); Troponin High Sensitivity 4.8 pg/mL (<58.9)
[2025-01-25 13:54] LABS: Bilirubin Direct < 0.2 mg/dL (0-0.2); Bilirubin Indirect, Calculated 0.2 mg/dL (0.2-0.8)
[2025-01-25 14:52] LABS: Specific Gravity 1.005 (1.005-1.030)
[2025-01-25 14:53] LABS: Specific Gravity 1.005 (1.005-1.030); Sqamous Epithelial <5 /HPF (None Seen); Urine Bacteria <20 /HPF (<20); Urine Bilirubin NEGATIVE (Negative); Urine Blood Negative (Negative); Urine Clarity Turbid (Clear); Urine Color Colorless (Yellow); Urine Culture Reflex Order NOT NEEDED; Urine Glucose NEGATIVE (Negative); Urine Ketones NEGATIVE (Negative); Urine Micro Reflex YN NO BILL MICROSCOPIC; Urine Nitrite NEGATIVE (Negative); Urine Protein NEGATIVE (Negative); Urine RBC <5 /HPF (None Seen); Urine Urobilinogen Normal (Normal); Urine Yeast (Budding) Trace /HPF (None Seen)
--- NOTE | 2025-01-25 14:54 | RAD REPORT ---
EXAMINATION: ONE VIEW CHEST XR CLINICAL INDICATION: Female, 34 years old.,CHEST PAIN TECHNIQUE: Frontal chest projection is submitted. Examination is limited by patient positioning and t echnique. COMPARISON: No prior exam. FINDINGS: The lungs are well inflated and clear. No pneumothorax or sizable effusion. The heart is normal in s ize. Mediastinal contours are unremarkable. IMPRESSION: No acute intrathoracic abnormalities.
--- NOTE | 2025-01-25 15:10 | EDPHYS ---
Physician Documentation [facility] Name: Minerva Fry Age: 34 yrs Sex: Female : 1990 Arrival Date: 01/25/2025 Time: 12:08 Bed 16 Private MD: ED Physician Bud Fitzgerald HPI: 01/25 12:40 This 34 yrs old Black Female presents to ER via Ambulatory with complaints of Chest cp Pain, Back Pain. 12:40 The patient or guardian reports chest pain that is located primarily in the substernal cp area, anterior chest wall, mid. The pain radiates to back. Associated signs and symptoms: Pertinent positives: shortness of breath, Pertinent negatives: abdominal pain, cough, diaphoresis, dizziness, headache, lower extremity pain, lower extremity swelling, palpitations, syncope, vomiting. The chest pain is described as sharp. Duration: The patient or guardian reports a single episode, that is still ongoing. Modifying factors: the symptoms are aggravated by breathing, deep breath. Severity of pain: in the emergency department the pain is unchanged despite home interventions. 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 - Infectious Disease History:: Denies. - Social history:: Smoking status: Patient denies any tobacco usage or history of. ROS: 12:45 Constitutional: Negative for body aches, chills, fever, poor PO intake, cp 12:45 Cardiovascular: Positive for chest pain, of the mid chest, Negative for edema, cp palpitations, 12:45 Eyes: Negative for injury, pain, redness, and discharge, cp 12:45 ENT: Negative for drainage from ear(s), ear pain, sore throat, difficulty swallowing, difficulty handling secretions, 12:45 Respiratory: Positive for shortness of breath, Negative for cough, wheezing, 12:45 Abdomen/GI: Negative for abdominal pain, nausea, vomiting, and diarrhea, 12:45 Back: Positive for radiated pain, 12:45 : Negative for urinary symptoms, 12:45 Neuro: Negative for altered mental status, dizziness, headache, weakness, 12:45 All other systems are negative, Exam: 12:50 Head/Face: Normocephalic, atraumatic. cp 12:50 Constitutional: The patient appears in no acute distress, alert, awake, cp non-diaphoretic, non-toxic, well developed, well nourished, uncomfortable, 12:50 Eyes: Periorbital structures: appear normal, Conjunctiva: normal, no exudate, no injection, Sclera: no appreciated abnormality, Lids and lashes: appear normal, bilaterally, 12:50 ENT: External ear(s): are unremarkable, Nose: is normal, Mouth: Lips: moist, Oral mucosa: pink and intact, moist, Posterior pharynx: Airway: no evidence of obstruction, patent, 12:50 Neck: ROM/movement: is normal, is supple, without pain, no range of motions limitations, 12:50 Chest/axilla: Inspection: normal, Palpation: crepitus, is not appreciated, tenderness, that is moderate, of the mid-sternal area, 12:50 Cardiovascular: Rate: normal, Rhythm: regular, Edema: is not appreciated, JVD: is not appreciated, 12:50 Respiratory: the patient does not display signs of respiratory distress, Respirations: normal, no grunting, no retractions, labored breathing, is not present, Breath sounds: are clear throughout, no decreased breath sounds, no stridor, no wheezing, 12:50 Abdomen/GI: Inspection: abdomen appears normal, Palpation: abdomen is soft and non-tender, in all quadrants, 12:50 Back: ROM is normal, CVA tenderness, is absent, 12:50 Neuro: Orientation: to person, place \T\ time. Mentation: is normal, Motor: moves all fours, strength is normal, Sensation: is normal, 13:36 ECG was reviewed by the Attending Physician. cp Vital Signs: 12:31 BP 118 / 83; Pulse 66; Resp 16 S; Temp 97.8(TE); Pulse Ox 100% on R/A; aa5 13:30 BP 113 / 81; Pulse 63; Resp 18; Pulse Ox 98% ; me1 14:00 BP 113 / 82; Pulse 61; Resp 20; Pulse Ox 100% ; me1 15:00 BP 115 / 81; Pulse 60; Resp 20; Temp 98.1; Pulse Ox 100% ; me1 MDM: 12:33 Medical Screening Exam initiated cp 15:08 Data reviewed: vital signs, nurses notes, lab test result(s), EKG, radiologic studies, cp plain films, and as a result, I will discharge patient. 15:08 Differential diagnosis: acute myocardial infarction, cholecystitis, Cholelithiasis cp pericarditis, pleurisy, pneumonia, pneumothorax, pulmonary embolus, thoracic aortic disection, pancreatitis. I considered the following discharge prescriptions or medication management in the emergency department Medications were administered in the Emergency Department. See MAR. Independent interpretation of the following test(s) in the Emergency Department EKG: See my EKG interpretation above. Counseling: I had a detailed discussion with the patient and/or guardian regarding the historical points, exam findings, and any diagnostic results supporting the discharge/admit diagnosis, lab results, radiology results, to return to the emergency department if symptoms worsen or persist or if there are any questions or concerns that arise at home. Response to treatment: the patient's symptoms have markedly improved after treatment, and as a result, I will discharge patient. Special discussion: Based on the patient's history, exam, and Dx evaluation, there is no indication for emergent intervention or inpatient Tx. It is understood by the patient/guardian that if the Sx's persist or worsen they need to return immediately for re-evaluation. 01/25 12:38 Order name: Basic Metabolic Panel; Complete Time: 14:23 cp 01/25 15:07 Interpretation: Normal except: GFR 86. cp 01/25 12:39 Order name: CBC with Diff; Complete Time: 14:23 cp 01/25 15:07 Interpretation: Normal except: PLT 148. cp 01/25 12:39 Order name: D-Dimer; Complete Time: 14:23 cp 01/25 14:23 Interpretation: Reviewed. cp 01/25 12:39 Order name: LFT's; Complete Time: 14:23 cp 01/25 12:39 Order name: Magnesium; Complete Time: 14:23 cp 01/25 12:39 Order name: PT-INR; Complete Time: 14:23 cp 01/25 12:39 Order name: Troponin HS; Complete Time: 14:23 cp 01/25 12:39 Order name: Test, Urine; Complete Time: 14:54 cp 01/25 12:39 Order name: Urinalysis W/Microscopic; Complete Time: 14:54 cp 01/25 12:39 Order name: XRAY Chest (1 view); Complete Time: 15:03 cp 01/25 15:03 Interpretation: Report review. 01/25 12:39 Order name: Cardiac monitoring; Complete Time: 13:33 cp 01/25 12:39 Order name: EKG - Nurse/Tech; Complete Time: 13:33 cp 01/25 12:39 Order name: IV Saline Lock; Complete Time: 13:27 cp 01/25 12:39 Order name: Labs collected and sent; Complete Time: 13:27 cp 01/25 12:39 Order name: O2 Per Protocol; Complete Time: 13:27 cp 01/25 12:39 Order name: O2 Sat Monitoring; Complete Time: 13:27 cp EC:36 Rate is 64 beats/min. Rhythm is regular. NH interval is normal. QRS interval is normal. cp QT interval is normal. T waves are Inverted in leads aVL, aVR. Interpreted by me. Reviewed by me. Administered Medications: 13:40 Drug: Ketorolac IVP 15 mg IVP once; may give if negative test Route: IVP; me1 Site: left antecubital; 14:36 Follow up: Response: No adverse reaction; Pain is decreased me1 13:40 Drug: NS 0.9% IV 1000 ml IV at 1 bolus Per protocol; to be given as a bolus over 60 me1 minutes Route: IV; Rate: 1 bolus; Site: left antecubital; 15:20 Follow up: Response: No adverse reaction; IV Status: Completed infusion; IV Intake: me1 1000ml Disposition: 01/26 10:53 Co-signature as Attending Physician, Bud Fitzgerald MD I reviewed the patient's care rn provided by the Advanced Practice Provider and agree with the diagnosis and treatment plan. Disposition Summary: 01/25/25 15:09 Discharge Ordered Notes: Location: Home cp Problem: new cp Symptoms: have improved cp Condition: Stable cp Diagnosis - Chest pain, unspecified cp Followup: cp - With: Private Physician - When: 2 - 3 days - Reason: Recheck today's complaints Discharge Instructions: - Discharge Summary Sheet cp - Nonspecific Chest Pain, Adult cp - Chest Wall Pain cp Forms: - Medication Reconciliation Form cp - Antibiotic Education cp - Prescription Opioid Use cp - Patient Portal Instructions cp - Leadership Thank You Letter cp Prescriptions: - Diclofenac Sodium 75 mg Oral Tablet Sustained Release - take 1 tablet ORAL route 2 times per day; 30 tablet; Refills: 0, Product cp Selection Permitted Signatures: Dispatcher [employer] EDMS Bud Fitzgerald MD MD rn Calderon, Audri, RN RN aa5 Kole Georges PA PA Nahomy Villanueva, RN RN me1 Corrections: (The following items were deleted from the chart) 01/25 12:39 12:39 BASIC METABOLIC PANEL+C.LAB.BRZ ordered. EDMS EDMS 12:39 12:39 CBC+H.LAB.BRZ ordered. EDMS EDMS 12:39 12:39 D-DIMER+COAG.LAB.BRZ ordered. EDMS EDMS 12:39 12:39 HEPATIC FUNCTION+C.LAB.BRZ ordered. EDMS EDMS 12:39 12:39 MAGNESIUM+C.LAB.BRZ ordered. EDMS EDMS 12:39 12:39 PROTIME (+INR)+COAG.LAB.BRZ ordered. EDMS EDMS 12:39 12:39 Troponin High Sensitivity+C.LAB.BRZ ordered. EDMS EDMS 12:39 12:39 Test, Urine+UC.LAB.BRZ ordered. EDMS EDMS 12:39 12:39 Urinalysis W/Microscopic+U.LAB.BRZ ordered. EDMS EDMS 12:39 12:39 Chest Single View+RAD.RAD.BRZ ordered. EDMS EDMS
--- NOTE | 2025-01-25 15:10 | ER ---
Nurse's Notes [facility] Name: Minerva Fry Age: 34 yrs Sex: Female : 1990 Arrival Date: 01/25/2025 Time: 12:08 Bed 16 Private MD: Diagnosis: Chest pain, unspecified Presentation: 01/25 12:31 Chief complaint: Patient states: mid-sternal chest pain and pain between shoulder aa5 blades upon inspiration. Denies nausea/vomiting, denies cough/congestion. CP began this morning. Coronavirus screen: At this time, the client does not indicate any symptoms associated with coronavirus-19. Ebola Screen: Patient denies travel to an Ebola-affected area in the 21 days before illness onset. Initial Sepsis Screen: Does the patient meet any 2 criteria? No. Patient's initial sepsis screen is negative. Does the patient have a suspected source of infection? No. Patient's initial sepsis screen is negative. Risk Assessment: Do you want to hurt yourself or someone else? Patient reports no desire to harm self or others. Onset of symptoms was January 2025. 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 - Infectious Disease History:: Denies. - Social history:: Smoking status: Patient denies any tobacco usage or history of. Screenin:15 [facility] ED Fall Risk Assessment (Adult) History of falling in the last 3 months, me1 including since admission No falls in past 3 months (0 pts) Confusion or Disorientation No (0 pts) Intoxicated or Sedated No (0 pts) Impaired Gait No (0 pts) Mobility Assist Device Used No (0 pt) Altered Elimination No (0 pt) Score/Fall Risk Level 0 - 2 = Low Risk Maintained a safe environment, Provided non-skid footwear, Hourly rounding (assess needs \T\ fall precautionary measures) done. Abuse screen: Denies threats or abuse. Nutritional screening: No deficits noted. Tuberculosis screening: No symptoms or risk factors identified. Assessment: 13:15 General: Appears uncomfortable, well groomed, well developed, well nourished, Behavior me1 is calm, cooperative, appropriate for age, Reports mid-sternal chest pain and pain between shoulder blades upon inspiration. Denies nausea/vomiting, denies cough/congestion. CP began this morning. Pain: Complains of pain in chest Pain radiates to back Pain currently is 7 out of 10 on a pain scale. Quality of pain is described as pressure, sharp, Pain began suddenly, Is continuous. Neuro: Level of Consciousness is awake, alert, obeys commands, Oriented to person, place, time, situation, Appropriate for age. Cardiovascular: Patient's skin is warm and dry. Cardiovascular: Reports chest pain. Respiratory: Airway is patent Respiratory effort is even, unlabored, Respiratory pattern is regular, symmetrical. GI: No signs and/or symptoms were reported involving the gastrointestinal system. : No signs and/or symptoms were reported regarding the genitourinary system. EENT: No signs and/or symptoms were reported regarding the EENT system. Derm: Skin is intact, is healthy with good turgor, Skin is pink, warm \T\ dry. Musculoskeletal: No signs and/or symptoms reported regarding the musculoskeletal system. Vital Signs: 12:31 BP 118 / 83; Pulse 66; Resp 16 S; Temp 97.8(TE); Pulse Ox 100% on R/A; aa5 13:30 BP 113 / 81; Pulse 63; Resp 18; Pulse Ox 98% ; me1 14:00 BP 113 / 82; Pulse 61; Resp 20; Pulse Ox 100% ; me1 15:00 BP 115 / 81; Pulse 60; Resp 20; Temp 98.1; Pulse Ox 100% ; me1 ED Course: 12:10 Patient arrived in ED. cj3 12:12 Kole Georges PA is PHCP. cp 12:12 Bud Fitzgerald MD is Attending Physician. cp 12:31 Arm band placed on. aa5 12:32 Triage completed. aa5 13:12 Nahomy Parker, ORINAA is Primary Nurse. me1 13:15 Patient has correct armband on for positive identification. Bed in low position. Call me1 light in reach. Side rails up X 1. Provided Education on: POC. Verbalized understanding.. Client placed on continuous cardiac and pulse oximetry monitoring. NIBP monitoring applied. manager operations on. Pulse ox on. NIBP on. 13:15 No provider procedures requiring assistance completed. Patient maintains SpO2 me1 saturation greater than 95% on room air. 13:27 Initial lab(s) drawn, by me, sent to lab. Inserted saline lock: 22 gauge in left me1 antecubital area, using aseptic technique. 13:27 Basic Metabolic Panel Sent. me1 13:27 CBC with Diff Sent. me1 13:27 D-Dimer Sent. me1 13:27 LFT's Sent. me1 13:27 Magnesium Sent. me1 13:27 PT-INR Sent. me1 13:27 Troponin HS Sent. me1 13:33 EKG done, by ED staff, reviewed by Kole TIAN. me1 13:42 XRAY Chest (1 view) In Process Unspecified. EDMS 14:36 Test, Urine Sent. me1 14:36 Urinalysis W/Microscopic Sent. me1 14:44 Urine collected: clean catch specimen, clear. me1 15:18 IV discontinued, intact, bleeding controlled, No redness/swelling at site. Pressure me1 dressing applied. Administered Medications: 13:40 Drug: Ketorolac IVP 15 mg IVP once; may give if negative test Route: IVP; me1 Site: left antecubital; 14:36 Follow up: Response: No adverse reaction; Pain is decreased me1 13:40 Drug: NS 0.9% IV 1000 ml IV at 1 bolus Per protocol; to be given as a bolus over 60 me1 minutes Route: IV; Rate: 1 bolus; Site: left antecubital; 15:20 Follow up: Response: No adverse reaction; IV Status: Completed infusion; IV Intake: me1 1000ml Medication: 13:15 VIS not applicable for this client. me1 Intake: 15:20 IV: 1000ml; Total: 1000ml. me1 Outcome: 15:09 Discharge ordered by cp 15:18 Discharged to home ambulatory, with significant other, me1 15:18 Condition: stable 15:18 Discharge instructions given to patient, significant other, Instructed on discharge instructions, follow up and referral plans. medication usage, Demonstrated understanding of instructions, follow-up care, medications, Prescriptions given X 1, 15:19 Patient left the ED. me1 Signatures: Dispatcher [employer] EDTerri Baker RN RN aa5 Kole Georges PA PA cp Nahomy Parker RN RN me1 Sharon Walker cj3 Corrections: (The following items were deleted from the chart) 12:32 12:31 Chief complaint: Patient states: mid-sternal chest pain and pain between shoulder aa5 blades upon inspiration. Denies nausea/vomiting, denies cough/congestion. aa5 14:33 12:31 Chief complaint: Patient states: mid-sternal chest pain and pain between shoulder me1 blades upon inspiration. Denies nausea/vomiting, denies cough/congestion. CP began this morning aa5
[2025-01-25 15:49] VITALS: O2SAT 100
[2025-01-25 15:51] VITALS: BP 115/81; TEMP 98.1
--- NOTE | 2025-01-26 10:49 | EKG ---
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
== END 2025-01-25 15:19 | disposition home or self-care (01) ==
LOC: ER 12:08
DX: R07.89 Other chest pain (principal); R06.02 Shortness of breath
CPT/HCPCS: 36415; 71045; 80048; 80076; 81001; 81025; 83735; 84484; 85025; 85379; 85610; 93005; 96361; 96374; 99285; J7030